=== PATIENT | female | born 1965 | race Caucasian/White ===

== ENCOUNTER 2021-10-09 09:32 | Inpatient (IN) ==
[2021-10-09 09:59] LABS: ABG BASE EXCESS 0.5 mmol/L (-2.0-2.0); ABG HCO3 20.1 mmol/L (22-26)
[2021-10-09 10:00] LABS: ABG ALLEN TEST POS
--- NOTE | 2021-10-09 10:10 | DR.SOBA ---
HPI Time Seen Time Seen by Provider: 10/09/21 10:10 Primary Care Physician Primary Care Physician: BRITTANEY Complaints Chief Complaint:: TESTED POSITIVE FOR COVID LAST SATURDAY O2 AT HOME 80% AT HOME. CALLED DR. QUISPE [facility] THIS MORNING AND HE SENT PT TO ER. PT C/O SHORTNESS OF BREATH, WEAKNESS AND NAUSEATED. PT STATES SHE HAS A SORE THROAT, RIGHT EAR PAIN Self Treatment fo Chief Complaint: HAS BEEN TAKING TYLENOL AND VITAMINS AT HOME. RCV THE OUTPT INFUSION FOR COVID ON 10/03/21, SX HAVEN'T GOTTEN BETTER COVID-19 Coronavirus risk:travel/contact w/high risk person: Yes Has patient experienced Coronavirus symptoms: Yes Coronavirus symptoms experienced: Coughing and Shortness of Breath Source History Provided: Patient and Significant Other Mode of Arrival Mode of Arrival: Wheelchair Timing Onset of Chief Complaint: 10/02/21 PMH PMH Past Medical History: Yes Past Medical History: Diabetes, Dyslipidemia and Hypertension Past Medical History Comment: HX SARCOIDOSIS Past Surgical History: Yes Surgical History: Cholecystectomy and Hysterectomy Family History History of Family Medical Conditions: Yes Family Medical History: Diabetes Mellitus, Coronary Artery Disease and Hypertension Social History Does patient currently use any type of tobacco product: No Have you used tobacco products in the last 12 months: No Type of Tobacco Use: None Alcohol Use: None Do you use any recreational Drugs:: No Lives With: Spouse Lives Where: Home Travel Risk Coronavirus risk:travel/contact w/high risk person: Yes Has patient experienced Coronavirus symptoms: Yes Coronavirus symptoms experienced: Coughing and Shortness of Breath Infectious screening In the last 2 months have you had wt loss of >10#?: NO Have you had fever, night sweats or hemotysis?: No Have you traveled outside the country in the last 6 months?: No Isolation: Droplet ROS Review of Systems Constitutional: No Symptoms Reported and See HPI Eyes: No Symptoms Reported and See HPI ENTM: No Symptoms Reported and See HPI Respiratoy: No Symptoms Reported and See HPI Cardiovascular: No Symptoms Reported and See HPI Gastrointestinal/Abdominal: No Symptoms Reported and See HPI Genitourinary: No Symptoms Reported and See HPI Neurological: No Symptoms Reported and See HPI Musculoskeletal: No Symptoms Reported and See HPI Integumentary: No Symptoms Reported and See HPI Hematologic/Lymphatic: No Symptoms Reported and See HPI Endocrine: No Symptoms Reported and See HPI Psychiatric: No Symptoms Reported and See HPI All Other Systems: Reviewed and Negative PE Vital Signs Vitals: Temperature 98.3 F Pulse Rate [Left Radial] 68 Pulse Rate 67 Respiratory Rate 18 Blood Pressure [Right Arm] 117/78 Blood Pressure 125/80 O2 Sat by Pulse Oximetry 91 General Limitations: No Limitations General Appearance: Alert and In No Apparent Distress Head Head Exam: Normal Inspection Eyes Eye exam: Normal Appearance ENT ENT Exam: Normal Exam Neck Neck Exam: Normal Inspection Chest Chest Inspection: Normal Inspection Respiratory Respiratory Exam: Normal Lung Sounds Bilat Respiratory Exam: Bilateral: Clear to Auscultation Cardiovascular Cardiovascular Exam: Regular Rate and Normal Rhythm Abdominal Exam Abdominal Exam: Normal Inspection, Normal Bowel Sounds and Soft Extremities Extremities Exam: Normal Inspection Back Back Exam: Normal Inspection Neurologic Neurological Exam: Alert and Oriented X3 Psychiatric Psychiatric Exam: Normal Affect and Normal Mood Skin Skin Exam: Warm, Dry, Intact and Normal Color ROR Labs Reviewed Result Diagrams: 10/15/21 07:00 10/15/21 07:00 Laboratory: WBC 6.5 X10^3/uL (3.6-10.0) 10/09/21 09:53 RBC 4.77 X10^6/uL (3.5-5.4) 10/09/21 09:53 Hgb 14.8 g/dL (12.0-16.0) 10/09/21 09:53 Hct 43.4 % (36.0-47.0) 10/09/21 09:53 MCV 90.9 fL (80.0-100.0) 10/09/21 09:53 MCH 31.0 pg (27.0-34.0) 10/09/21 09:53 MCHC 34.1 g/dL (33.0-35.0) 10/09/21 09:53 RDW 13.9 % (11.6-16.5) 10/09/21 09:53 Plt Count 164 X10^3/uL (150.0-450.0) 10/09/21 09:53 MPV 9.5 fL (7.4-11.0) 10/09/21 09:53 Neut % (Auto) 60.8 % (42.0-75.0) 10/09/21 09:53 Lymph % (Auto) 29.8 % (21.0-51.0) 10/09/21 09:53 Morton % (Auto) 9.1 % (0.0-13.0) 10/09/21 09:53 Eos % (Auto) 0.1 % (0.9-2.9) L 10/09/21 09:53 Baso % (Auto) 0.2 % (0.2-1.0) 10/09/21 09:53 Neut # (Auto) 4.0 x10^3/uL (2.2-4.8) 10/09/21 09:53 Lymph # (Auto) 1.9 X10^3/uL (1.3-2.9) 10/09/21 09:53 Morton # (Auto) 0.6 x10^3/uL (0.3-0.8) 10/09/21 09:53 Eos # (Auto) 0.0 x10^3/uL (0.0-0.2) 10/09/21 09:53 Baso # (Auto) 0.0 X10^3/uL (0.0-0.1) 10/09/21 09:53 Absolute Nucleated RBC 0.2 /100WBC 10/09/21 09:53 D-Dimer < 0.27 ug/ml (0.0-0.57) 10/09/21 09:53 Sample Site Lr 10/09/21 09:57 ABG pH 7.610 (7.35-7.45) H* 10/09/21 09:57 ABG pCO2 20.0 mmHg (35.0-45.0) L 10/09/21 09:57 ABG pO2 130.0 mmHg (80.0-100.0) H 10/09/21 09:57 ABG HCO3 20.1 mmol/L (22-26) L 10/09/21 09:57 ABG O2 Saturation 99.0 % (90-100) 10/09/21 09:57 ABG Base Excess 0.5 mmol/L (-2.0-2.0) 10/09/21 09:57 Usama Test Pos 10/09/21 09:57 A-a Gradient -5.0 mmHg 10/09/21 09:57 FiO2 21.0 10/09/21 09:57 Blood Gas Comments Pt christopher well. sd 10/09/21 09:57 Sodium 132 mmol/L (136-145) L 10/09/21 09:53 Corrected Sodium 132 mmol/L (136-145) L 10/09/21 09:53 Potassium 3.3 mmol/L (3.5-5.1) L 10/09/21 09:53 Chloride 97 mmol/L (98-107) L 10/09/21 09:53 Carbon Dioxide 27.7 mmol/L (21-32) 10/09/21 09:53 BUN 12 mg/dL (7-18) 10/09/21 09:53 Creatinine 1.08 mg/dL (0.55-1.02) H 10/09/21 09:53 Est GFR (MDRD) Af Amer > 60 (>60) 10/09/21 09:53 Est GFR (MDRD) Non-Af 56 (>60) L 10/09/21 09:53 Glucose 115 mg/dL (65-99) H 10/09/21 09:53 Calcium 8.6 mg/dL (8.5-10.1) 10/09/21 09:53 Corrected Calcium 9.4 mg/dL (8.5-10.1) 10/09/21 09:53 Magnesium 1.4 mg/dL (1.7-2.9) L 10/09/21 09:53 Ferritin 290 ng/mL (8-252) H 10/09/21 09:53 Total Bilirubin 0.40 mg/dL (0.2-1.0) 10/09/21 09:53 AST 49 Units/L (15-37) H 10/09/21 09:53 ALT 37 Units/L (12-78) 10/09/21 09:53 Alkaline Phosphatase 67 Units/L (46-116) 10/09/21 09:53 C-Reactive Protein 31.80 mg/L (0-3.0) H 10/09/21 09:53 B-Natriuretic Peptide 7.3 pg/mL (0-79) 10/09/21 09:53 Total Protein 7.2 g/dL (6.4-8.2) 10/09/21 09:53 Albumin 3.0 g/dL (3.4-5.0) L 10/09/21 09:53 Globulin 4.2 g/dL (2.5-4.5) 10/09/21 09:53 Albumin/Globulin Ratio 0.7 Ratio (1.1-2.1) L 10/09/21 09:53 Specimen Type Clean catch urine 10/09/21 11:29 Urine Color Yellow (YELLOW) 10/09/21 11:29 Urine Appearance Slightly hazy (CLEAR) 10/09/21 11:29 Urine pH 6.0 (5.0 - 8.0) 10/09/21 11:29 Ur Specific [place] 1.015 (1.000-1.030) 10/09/21 11:29 Urine Protein 2+ (NEGATIVE) 10/09/21 11:29 Urine Glucose (UA) Negative (NEGATIVE) 10/09/21 11:29 Urine Ketones Negative (NEGATIVE) 10/09/21 11:29 Urine Occult Blood 1+ (NEGATIVE) 10/09/21 11:29 Urine Nitrite Negative (NEGATIVE) 10/09/21 11:29 Urine Bilirubin Negative (NEGATIVE) 10/09/21 11:29 Urine Urobilinogen 1+ (NORMAL) 10/09/21 11:29 Ur Leukocyte Esterase 1+ (NEGATIVE) 10/09/21 11:29 Urine RBC 0-2 /HPF (0-3) 10/09/21 11:29 Urine WBC 0-2 /HPF (0-5) 10/09/21 11:29 Ur Squamous Epith Cells Many /HPF (NEGATIVE) 10/09/21 11:29 Urine Bacteria Trace /HPF (NEGATIVE) 10/09/21 11:29 Urine Yeast Few /HPF (NEGATIVE) 10/09/21 11:29 Ur Culture Indicated? No/not indicated 10/09/21 11:29 SARS-CoV-2 (PCR) Positive (NEGATIVE) A 10/09/21 13:32 Influenza Type A (PCR) Negative (NEGATIVE) 10/09/21 13:32 Influenza Type B (PCR) Negative (NEGATIVE) 10/09/21 13:32 RSV (PCR) Negative (NEGATIVE) 10/09/21 13:32 Opioid Opioid Risk Tool Age (Benjie box if 16-45): No History of Preadolescent Sexual Abuse: No Total: 0 Total Score Risk Category: Low Risk Copyright: Lino VILLALOBOS predicting aberrant behaviors Instructions Forms: Excuse From Work or School Precautions for COVID19 [facility] Patient Portal Social Distancing
[2021-10-09 10:19] LABS: BASOPHILS % (AUTO) 0.2 % (0.2-1.0); EOSINOPHILS % (AUTO) 0.1 % (0.9-2.9); HEMATOCRIT 43.4 % (36.0-47.0); HEMOGLOBIN 14.8 g/dL (12.0-16.0); LYMPHOCYTES # (AUTO) 1.9 X10^3/uL (1.3-2.9); LYMPHOCYTES % (AUTO) 29.8 % (21.0-51.0); MEAN CORPUSCULAR HGB CONC 34.1 g/dL (33.0-35.0); MEAN CORPUSCULAR VOLUME 90.9 fL (80.0-100.0); MEAN PLATELET VOLUME 9.5 fL (7.4-11.0); MONOCYTES # (AUTO) 0.6 x10^3/uL (0.3-0.8); MONOCYTES % (AUTO) 9.1 % (0.0-13.0); NEUTROPHILS % (AUTO) 60.8 % (42.0-75.0); PLATELET COUNT 164 X10^3/uL (150.0-450.0); RED BLOOD COUNT 4.77 X10^6/uL (3.5-5.4); RED CELL DISTRIBUTION WIDTH 13.9 % (11.6-16.5); WHITE BLOOD COUNT 6.5 X10^3/uL (3.6-10.0)
[2021-10-09] MEDS ORDERED: NS 1,000 ML IV 1,000 ML ONE (10:21)
[2021-10-09] MEDS: NS 1,000 ML IV 1,000 ML IV SCH ×2 (10:27→19:08)
[2021-10-09 10:33] LABS: ALANINE AMINOTRANSFERASE 37 Units/L (12-78); ALKALINE PHOSPHATASE 67 Units/L (46-116); ASPARTATE AMINO TRANSFERASE 49 Units/L (15-37); BLOOD UREA NITROGEN 12 mg/dL (7-18); CALCIUM 8.6 mg/dL (8.5-10.1); CARBON DIOXIDE 27.7 mmol/L (21-32); CHLORIDE 97 mmol/L (98-107); COR CA(FOR HYPOALB) 9.4 mg/dL (8.5-10.1); COR NA(FOR HYPERGLY) 132 mmol/L (136-145); CREATININE 1.08 mg/dL (0.55-1.02); SODIUM 132 mmol/L (136-145); TOTAL PROTEIN 7.2 g/dL (6.4-8.2); eGFR NON BLACK RACES 56 (>60)
[2021-10-09 11:36] LABS: BILIRUBIN,URINE NEGATIVE (NEGATIVE); BLOOD/HEMOGLOBIN,URINE 1+ (NEGATIVE); GLUCOSE, URINE NEGATIVE (NEGATIVE); KETONES,URINE NEGATIVE (NEGATIVE); LEUKOCYTE ESTERASE ,URINE 1+ (NEGATIVE); NITRITES,URINE NEGATIVE (NEGATIVE); PROTEIN,URINE 2+ (NEGATIVE); UROBILINOGEN,URINE 1+ (NORMAL)
--- NOTE | 2021-10-09 11:45 | RAD ---
HISTORYCOVID +, C/O SOB, FEVER Relevant Clinical InformationSTUDYCHEST, 1 VIEWCOMPARISONCXR 10/03/21FINDINGSThe trachea is midline. The cardiac silhouette is enlarged, which may be secondary to low lung volumes. No overt signs of failure. Patchy bilateral airspace disease. No obvious pleural effusion or pneumothorax. The bony thorax is unremarkable.IMPRESSIONPatchy bilateral airspace disease, which may represent multifocal bacterial versus viral pneumonia. Recommend following to resolution.Electronically signed by: JOYCE SCHMIDT (Oct 09, 2021 11:43:37)
[2021-10-09 11:53] LABS: APPEARANCE,URINE SLIGHTLY HAZY (CLEAR); COLOR,URINE YELLOW (YELLOW)
[2021-10-09 11:55] LABS: RBC,URINE 0-2 /HPF (0-3)
[2021-10-09 11:56] LABS: BACTERIA,URINE TRACE /HPF (NEGATIVE); SQUAMOUS EPITHELIAL CELL,UR MANY /HPF (NEGATIVE)
[2021-10-09 11:57] LABS: YEAST,URINE FEW /HPF (NEGATIVE)
[2021-10-09] MEDS ORDERED: NS 1,000 ML IV 1,000 ML with POTASSIUM CHLORIDE INJ 10 MEQ VIAL 10 MEQ IV SCH ×2 (13:00)
[2021-10-09] MEDS ORDERED: NS 1,000 ML IV 1,000 ML with POTASSIUM CHLORIDE INJ 10 MEQ VIAL 10 MEQ IV ONE ×2 (16:00)
[2021-10-09] MEDS ORDERED: REMDESIVIR 200 MG in NS 250 ML IV 250 ML IV ONE (16:57)
[2021-10-09] MEDS ORDERED: KLOR-CON PO PRN (17:02)
[2021-10-09] MEDS ORDERED: POTASSIUM CHL 60 MEQ/NS 0.45% 500 ML IV PRN (17:02)
[2021-10-09] MEDS ORDERED: POTASSIUM CHL 40 MEQ/NS 0.45% 500 ML IV PRN (17:02)
[2021-10-09] MEDS ORDERED: POTASSIUM CHLORIDE LIQ 20 MEQ UDC PO PRN ×3 (17:02→17:34)
[2021-10-09] MEDS: ASCORBIC ACID INJ MULTI-DOSE VIAL 1,500 MG in NS 100 ML IV 100 ML IV SCH ×2 (17:33→20:08)
[2021-10-09] MEDS: MAGNESIUM SULFATE 1 GRAM/100 mL PREMIX 1 G/100 ML BAG IV PRN ×3 (18:55→21:10)
[2021-10-09] MEDS: LOVENOX INJ 30 MG SYR SC SCH (20:08)
[2021-10-09] MEDS: VIBRAMYCIN PO SCH (20:08)
[2021-10-09] MEDS: PEPCID TAB 40 MG PO SCH (20:08)
[2021-10-09] MEDS: FLUVOXAMINE MALEATE PO SCH (20:08)
[2021-10-09] MEDS: ZINC SULFATE PO SCH (20:08)
[2021-10-09] MEDS ORDERED: BROVANA IN SCH (21:00)
[2021-10-09] MEDS ORDERED: PULMICORT NEB TX 0.5 MG NEB SCH (21:00)
[2021-10-09] MEDS: PULMICORT NEB TX 0.5 MG NEB SCH (21:05)
[2021-10-09] MEDS: DUONEB 0.5 MG/3 MG (3 mL) NEB SCH (21:05)
[2021-10-09] MEDS: IVERMECTIN PO SCH (21:09)
[2021-10-09] MEDS: SOLU-Medrol 40 MG VIAL IVP SCH (21:09)
[2021-10-09] MEDS: PERIACTIN TAB 4 MG PO SCH (21:09)
[2021-10-09] MEDS: ZOSYN VIAL 3.375 GRAMS 3.375 G in NS 100 ML IV + SPIKE MINIBAG* 100 ML IV SCH (21:10)
[2021-10-10] MEDS: MAGNESIUM SULFATE 1 GRAM/100 mL PREMIX 1 G/100 ML BAG IV PRN (00:20)
[2021-10-10] MEDS: ASCORBIC ACID INJ MULTI-DOSE VIAL 1,500 MG in NS 100 ML IV 100 ML IV SCH ×4 (02:48→21:27)
[2021-10-10] MEDS: NS 1,000 ML IV 1,000 ML IV SCH ×2 (02:49→11:41)
[2021-10-10] MEDS ORDERED: NS 100 ML IV + SPIKE MINIBAG* 0 ML IV ONE (03:51)
[2021-10-10] MEDS ORDERED: NS 100 ML IV + SPIKE MINIBAG* 100 ML IV ONE (03:54)
[2021-10-10] MEDS: PERIACTIN TAB 4 MG PO SCH ×3 (05:07→21:29)
[2021-10-10] MEDS: SOLU-Medrol 40 MG VIAL IVP SCH ×3 (05:07→21:29)
[2021-10-10] MEDS: ZOSYN VIAL 3.375 GRAMS 3.375 G in NS 100 ML IV + SPIKE MINIBAG* 100 ML IV SCH ×3 (05:07→22:00)
[2021-10-10 05:18] LABS: ABG BASE EXCESS -0.4 mmol/L (-2.0-2.0); ABG HCO3 24.1 mmol/L (22-26)
[2021-10-10 05:19] LABS: ABG ALLEN TEST POS
--- NOTE | 2021-10-10 05:35 | RAD ---
PROCEDURE: Chest X-ray 1 View .HISTORY: COVID PNEUMONIA .TECHNIQUE: AP view .COMPARISON: 10/09/2021.TECHNICAL QUALITY: Satisfactory .FINDINGS:Normal size heart .Mediastinum and hilar regions show no masses or lymphadenopathy .Normal central vascularity .Unchanged patchy pneumonia throughout both lung bautista with no pleural fluid or pneumothorax.No acute bony abnormality .IMPRESSION:Unchanged bilateral pneumonia.Electronically signed by: Ki Bermeo (Oct 10, 2021 05:33:33)
[2021-10-10] MEDS: NovoLIN R (or HumuLIN R) SUBCUT PRN ×4 (05:49→21:36)
[2021-10-10 05:56] LABS: BASOPHILS % (AUTO) 0.3 % (0.2-1.0); HEMOGLOBIN 13.5 g/dL (12.0-16.0); LYMPHOCYTES # (AUTO) 0.8 X10^3/uL (1.3-2.9); LYMPHOCYTES % (AUTO) 20.5 % (21.0-51.0); MEAN CORPUSCULAR HEMOGLOBIN 30.9 pg (27.0-34.0); MEAN CORPUSCULAR HGB CONC 33.7 g/dL (33.0-35.0); MEAN CORPUSCULAR VOLUME 91.8 fL (80.0-100.0); MEAN PLATELET VOLUME 9.4 fL (7.4-11.0); MONOCYTES # (AUTO) 0.1 x10^3/uL (0.3-0.8); NEUTROPHILS # (AUTO) 3.2 x10^3/uL (2.2-4.8); NEUTROPHILS % (AUTO) 76.2 % (42.0-75.0); PLATELET COUNT 149 X10^3/uL (150.0-450.0); RED BLOOD COUNT 4.35 X10^6/uL (3.5-5.4); RED CELL DISTRIBUTION WIDTH 13.7 % (11.6-16.5); WHITE BLOOD COUNT 4.1 X10^3/uL (3.6-10.0)
[2021-10-10 06:13] LABS: ALANINE AMINOTRANSFERASE 38 Units/L (12-78); ALBUMIN 2.7 g/dL (3.4-5.0); ALKALINE PHOSPHATASE 66 Units/L (46-116); ASPARTATE AMINO TRANSFERASE 55 Units/L (15-37); BLOOD UREA NITROGEN 10 mg/dL (7-18); CALCIUM 8.1 mg/dL (8.5-10.1); CARBON DIOXIDE 22.2 mmol/L (21-32); CHLORIDE 98 mmol/L (98-107); COR CA(FOR HYPOALB) 9.1 mg/dL (8.5-10.1); COR NA(FOR HYPERGLY) 137 mmol/L (136-145); CREATININE 1.02 mg/dL (0.55-1.02); MAGNESIUM 2.5 mg/dL (1.7-2.9); SODIUM 132 mmol/L (136-145); TOTAL PROTEIN 6.8 g/dL (6.4-8.2); eGFR NON BLACK RACES 60 (>60)
[2021-10-10] MEDS: FLUVOXAMINE MALEATE PO SCH ×2 (08:50→21:27)
[2021-10-10] MEDS: LOVENOX INJ 30 MG SYR SC SCH (08:50)
[2021-10-10] MEDS: PEPCID TAB 40 MG PO SCH ×2 (08:51→21:28)
[2021-10-10] MEDS: TRICOR TAB 160 MG PO SCH (08:51)
[2021-10-10] MEDS: VIBRAMYCIN PO SCH ×2 (08:52→21:28)
[2021-10-10] MEDS: ZINC SULFATE PO SCH ×2 (08:53→21:28)
[2021-10-10] MEDS ORDERED: VITAMIN A PO SCH (09:00)
[2021-10-10] MEDS ORDERED: REMDESIVIR 100 MG in NS 250 ML IV 250 ML IV SCH (09:00)
[2021-10-10] MEDS ORDERED: VITAMIN D (1.25MG) PO SCH (09:00)
[2021-10-10] MEDS: DUONEB 0.5 MG/3 MG (3 mL) NEB SCH (09:20)
[2021-10-10] MEDS: PULMICORT NEB TX 0.5 MG NEB SCH ×2 (09:20→20:35)
[2021-10-10] MEDS ORDERED: REMDESIVIR 100 MG in NS 100 ML IV + SPIKE MINIBAG* 120 ML IV ONE (09:36)
[2021-10-10] MEDS: K-RIDER 10 MEQ/NS 100 ML 10 MEQ/100 ML BAG IV PRN ×2 (10:10→11:52)
[2021-10-10] MEDS ORDERED: REMDESIVIR IV ONE (10:15)
--- NOTE | 2021-10-10 13:25 | DR.H&P ---
H&P - History & Physical for Day of: H&P Date: 10/09/21 - Chief Complaint Chief Complaint: COVID-19, SHORTNESS OF BREATH, COUGH, NAUSEA, WEAKNESS, LOW OXYGEN SATURATIONS - History of Present Illness History of Present Illness: IS A 56 YEAR OLD PATIENT OF OURS. SHE PRESENTED TO THE ER WITH REPORTS OF INCREASING SHORTNESS OF BREATH, WEAKNESS, NAUSEA, AND LOW OXYGEN SATURATIONS. SHE ALSO ADMITS TO A SORE THROAT AND RIGHT EAR PAIN. PATIENT REPORTS THAT HER OXYGEN SATURATIONS AT HOME WERE IN THE LOWER 80s. SHE ADMITS TO TESTING POSITIVE FOR COVID-19 ON 10/02/21. SHE HAD THE [facility]- COV INFUSION ON 10/03. SHE HAS ALSO BEEN TAKING TYLENOL AND VITAMINS AT HOME WITHOUT IMPROVEMENT IN SYMPTOMS. HER PMH INCLUDES: DIABETES, DYSLIPIDEMIA, HTN, SARCOIDOSIS, CHOLECYSTECTOMY, AND HYSTERECTOMY. AUSCULTATION OF LUNG JORDAN REVEALED RHONCHI THROUGHOUT. ON ARRIVAL, HER VITALS WERE 98.3-61-24-81%RA-133/74. LABS WERE OBTAINED. ABNORMAL LAB VALUES INCLUDED THE FOLLOWING: SODIUM 132, POTASSIUM 3.3, CHLORIDE 97, CREATINE 1.08, GLUCOSE 115, FERRITIN 290, AST 49, CRP 31.80, ALBUMIN 3.0. A URINALYSIS WAS UNREMARKABLE. COVID-19 POSITIVE. RSV AND INFLUENZA WERE NEGATIVE. A CHEST XRAY WAS OBTAINED AND REVEALED: Patchy bilateral airspace disease, which may represent multifocal bacterial versus viral pneumonia. EKG REVEALED: SINUS RHYTHM WITH HR 73. IN THE ER, SHE WAS GIVEN A NORMAL SALINE BOLUS, REMDESIVIR 200MG IV X 1, DUONEB X 1. SHE WAS ADMITTED TO THE HOSPITAL FOR FURTHER EVALUATION AND TREATMENT OF PNEUMONIA DUE TO COVID-19, HYPOXIA, RESPIRATORY DISTRESS, AND WEAKNESS. SHE WAS STARTED ON NORMAL SALINE AT 125 ML/HR, IV REMDESIVIR, SOLU-MEDROL 80MG IV Q8H, ZOSYN 3.375G IV TID, VIBRAMYCIN 100MG PO BID, ASCORBIC ACID 1500MG IV Q6H, LOVENOX 30MG SC BID, PULMICORT NEBS, XOPENEX NEBS, PERIACTIN 8MG PO TID, BITAMIN D, PEPCID 40MG PO BID, TRICOR 160MG PO DAILY, FLUVOXAMINE 50MG PO BID, IVERMECTIN 21MG PO Q72H, ZINC SULFATE 220MG PO BID, AND THE POTASSIUM AND MAGNESIUM PROTOCOLS. OTHERWISE, WE PLAN TO FOLLOW UP WITH AM LABS AND CHEST XRAY AND CONTINUE TO MONITOR. TIME SPENT ON CLINICAL ASSESSMENT, REVIEWING LABS AND IMAGING, DECISION MAKING, AND DOCUMENTATION WAS GREATER THAN 75 MINUTES. - Past Medical History Past Medical History: Hypertension, Dyslipidemia, Diabetes - Past Surgical History Surgical History: Cholecystectomy, Hysterectomy - Family History Family Medical History: Diabetes Mellitus, Coronary Artery Disease, Hypertension - Social History Does patient currently use any type of tobacco product: No Have you used tobacco products in the last 12 months: No Type of Tobacco Use: None Alcohol Use: None - Medications Home Medications: flecainide Allergy (Verified 06/16/18 20:22) CONTINUE taking the following medications apixaban [Eliquis] 5 mg PO BID 10/09/21 [History] isosorbide mononitrate 30 mg PO BID 10/09/21 [History] - Review of Systems Constitutional: Weakness Eyes: No Symptoms Reported ENT: No Symptoms Reported Respiratory: Cough, Shortness of Breath, SOB with Excertion Cardiovascular: No Symptoms Reported Gastrointestinal: Nausea Genitourinary: No Symptoms Reported Musculoskeletal: No Symptoms Reported Skin: No Symptoms Reported Neurological: Weakness - Physical Exam Vital Signs: Temperature 98.8 F Pulse Rate [Left Radial] 72 Pulse Rate 74 Respiratory Rate 22 Blood Pressure [Right Arm] 129/72 Blood Pressure 103/63 O2 Sat by Pulse Oximetry 93 Oriented: Normal Eyes: Normal Ear: Normal Nose: Normal Throat: Normal Respiratory: Rhonchi Throughout Cardiovascular: Normal : Normal Auscultation: Bowel Sounds: Normal Palpation: Normal Tenderness: Normal Skin: Normal Musculoskeletal: Normal Psychiatric: Normal Mood Description: Calm Affect: Normal Speech Pattern: Clear - Assessment/Plan (1) Pneumonia due to COVID-19 virus Status: Acute Plan: ADMIT, SUPPLEMENTAL OXYGEN, IV ANTIBIOTICS, IV STEROIDS, NEBULIZER TREATMENTS, IMMUNE SUPPLEMENTS (2) Hypoxia Status: Acute (3) Respiratory distress Status: Acute (4) Generalized weakness Status: Acute - Allergies Allergies/Adverse Reactions: Allergies Allergy/AdvReac Type Severity Reaction Status Date / Time flecainide Allergy Verified 06/16/18 20:22
[2021-10-10] MEDS: ASPIRIN PO SCH (17:19)
[2021-10-10] MEDS: XOPENEX 1.25 MG/3 ML NEBULE NEB SCH (20:35)
[2021-10-10] MEDS: ELIQUIS PO SCH (21:27)
[2021-10-10] MEDS: IMDUR PO SCH (21:28)
[2021-10-11] MEDS: NS 1,000 ML IV 1,000 ML IV SCH ×4 (01:01→20:01)
[2021-10-11] MEDS: ASCORBIC ACID INJ MULTI-DOSE VIAL 1,500 MG in NS 100 ML IV 100 ML IV SCH ×4 (04:10→20:01)
[2021-10-11 05:28] LABS: BASOPHILS % (AUTO) 0.1 % (0.2-1.0); HEMATOCRIT 32.6 % (36.0-47.0); HEMOGLOBIN 11.2 g/dL (12.0-16.0); LYMPHOCYTES # (AUTO) 1.3 X10^3/uL (1.3-2.9); LYMPHOCYTES % (AUTO) 12.9 % (21.0-51.0); MEAN CORPUSCULAR HEMOGLOBIN 31.3 pg (27.0-34.0); MEAN CORPUSCULAR HGB CONC 34.3 g/dL (33.0-35.0); MEAN CORPUSCULAR VOLUME 91.3 fL (80.0-100.0); MEAN PLATELET VOLUME 9.3 fL (7.4-11.0); MONOCYTES # (AUTO) 0.5 x10^3/uL (0.3-0.8); MONOCYTES % (AUTO) 5.5 % (0.0-13.0); NEUTROPHILS # (AUTO) 8.1 x10^3/uL (2.2-4.8); NEUTROPHILS % (AUTO) 81.5 % (42.0-75.0); PLATELET COUNT 155 X10^3/uL (150.0-450.0); RED BLOOD COUNT 3.57 X10^6/uL (3.5-5.4); RED CELL DISTRIBUTION WIDTH 13.3 % (11.6-16.5); WHITE BLOOD COUNT 9.9 X10^3/uL (3.6-10.0)
[2021-10-11 05:49] LABS: ALANINE AMINOTRANSFERASE 30 Units/L (12-78); ALBUMIN 2.2 g/dL (3.4-5.0); ALKALINE PHOSPHATASE 59 Units/L (46-116); ASPARTATE AMINO TRANSFERASE 43 Units/L (15-37); BLOOD UREA NITROGEN 14 mg/dL (7-18); CALCIUM 7.6 mg/dL (8.5-10.1); CARBON DIOXIDE 24.7 mmol/L (21-32); CHLORIDE 108 mmol/L (98-107); COR NA(FOR HYPERGLY) 143 mmol/L (136-145); CREATININE 0.91 mg/dL (0.55-1.02); SODIUM 141 mmol/L (136-145); TOTAL PROTEIN 5.6 g/dL (6.4-8.2); eGFR NON BLACK RACES > 60 (>60)
[2021-10-11] MEDS: ZOSYN VIAL 3.375 GRAMS 3.375 G in NS 100 ML IV + SPIKE MINIBAG* 100 ML IV SCH ×3 (06:09→21:00)
[2021-10-11] MEDS: PERIACTIN TAB 4 MG PO SCH ×3 (06:09→21:01)
[2021-10-11] MEDS: SOLU-Medrol 40 MG VIAL IVP SCH ×3 (06:10→21:01)
[2021-10-11] MEDS: PULMICORT NEB TX 0.5 MG NEB SCH ×2 (08:50→20:56)
[2021-10-11] MEDS: XOPENEX 1.25 MG/3 ML NEBULE NEB SCH ×2 (08:50→20:56)
[2021-10-11] MEDS ORDERED: VITAMIN A PO SCH (09:00)
[2021-10-11] MEDS ORDERED: REMDESIVIR 200 MG in NS 250 ML IV 250 ML IV NR (09:00)
[2021-10-11] MEDS: ELIQUIS PO SCH ×3 (09:15→22:00)
[2021-10-11] MEDS: VIBRAMYCIN PO SCH ×2 (09:15→20:02)
[2021-10-11] MEDS: CALAN SR 180 MG PO SCH (09:15)
[2021-10-11] MEDS: ZINC SULFATE PO SCH ×2 (09:15→20:03)
[2021-10-11] MEDS: FOLIC ACID TAB 1 MG PO SCH (09:15)
[2021-10-11] MEDS: MOBIC TAB 15 MG PO SCH (09:15)
[2021-10-11] MEDS: ASPIRIN PO SCH (09:15)
[2021-10-11] MEDS: FLUVOXAMINE MALEATE PO SCH ×2 (09:15→20:03)
[2021-10-11] MEDS: TRICOR TAB 160 MG PO SCH (09:15)
[2021-10-11] MEDS: VITAMIN D3 125 mcg (5,000 UNITS) PO SCH (09:15)
[2021-10-11] MEDS: IMDUR PO SCH ×2 (09:15→20:03)
[2021-10-11] MEDS: PEPCID TAB 40 MG PO SCH ×2 (09:15→20:02)
[2021-10-11 10:42] LABS: ABG BASE EXCESS 1.3 mmol/L (-2.0-2.0); ABG HCO3 24.9 mmol/L (22-26)
[2021-10-11 10:44] LABS: ABG ALLEN TEST POS
--- NOTE | 2021-10-11 11:59 | RAD ---
HISTORYCOVID-19 SOBSTUDYAP [id number] size is similar. Interval increase in bilateral airspace disease throughout the lungs. No dominant mass, pneumothorax or large pleural effusion is evident.IMPRESSIONInterval progression of bilateral pneumonia.Electronically signed by: MANE PENNY (Oct 11, 2021 11:58:37)
[2021-10-11] MEDS ORDERED: NS 100 ML IV + SPIKE MINIBAG* 100 ML IV ONE (14:36)
[2021-10-11] MEDS ORDERED: PROVENTIL NEB TX 0.083% 2.5MG/ 3ML ONE (15:32)
[2021-10-11] MEDS ORDERED: PROVENTIL NEB TX 0.083% 2.5MG/ 3ML NEB PRN (15:36)
--- NOTE | 2021-10-11 15:41 | CT ---
HISTORYCOVID + pneumoniaSTUDYCHEST WITH CONCOMPARISONChest radiograph 10/09/2021 and chest CTA 11/06/2020TECHNIQUEMultiple CT axial images of the chest were obtained with IV contrast. Coronal and sagittal images were reconstructed. Dose reduction techniques included Automated Exposure Control (AEC) and adjustment of mA and kV.FINDINGSProbable normal heart size.The pulmonary artery and aorta have a normal caliber. Mediastinal lymphadenopathy is most likely reactive. These are only borderline enlarged with the largest in the sub carinal space.The thyroid has a normal size and configuration. No axillary mass or significant axillary lymphadenopathy is identified.Multifocal ground-glass opacity is present consistent with bronchopneumonia. Although nonspecific, this is a pattern frequently seen with COVID-19 pneumonia.No pleural effusion or pneumothorax.Surgical clips are present in the gallbladder fossa from a cholecystectomy. Round fluid collection in the gallbladder fossa is stable with no inflammatory changes around it. This is probably a postsurgical seroma. Calcifications in the left and right kidney are present. No hydronephrosis.Degenerative changes are present in the spine.IMPRESSION1. Findings consistent with bronchopneumonia2. Reactive mediastinal lymphadenopathy3. Nonobstructing renal calculiElectronically signed by: Arya Pimentel (Oct 11, 2021 15:39:33)
[2021-10-11] MEDS ORDERED: NS 250 ML IV 250 ML IV PRN (20:43)
[2021-10-11] MEDS: NovoLIN R (or HumuLIN R) SUBCUT PRN (20:46)
[2021-10-11] MEDS ORDERED: NS 250 ML IV 250 ML IV ONE (20:49)
[2021-10-12] MEDS: ASCORBIC ACID INJ MULTI-DOSE VIAL 1,500 MG in NS 100 ML IV 100 ML IV SCH ×2 (02:02→11:11)
[2021-10-12] MEDS ORDERED: ROBITUSSIN DM ONE (02:11)
[2021-10-12] MEDS: ROBITUSSIN DM PO PRN ×2 (02:30→20:36)
[2021-10-12] MEDS: NS 1,000 ML IV 1,000 ML IV SCH ×3 (05:09→20:36)
[2021-10-12] MEDS: SOLU-Medrol 40 MG VIAL IVP SCH ×3 (05:10→21:06)
[2021-10-12] MEDS: PERIACTIN TAB 4 MG PO SCH ×3 (05:10→21:06)
[2021-10-12] MEDS: ZOSYN VIAL 3.375 GRAMS 3.375 G in NS 100 ML IV + SPIKE MINIBAG* 100 ML IV SCH ×3 (05:10→21:07)
[2021-10-12 05:32] LABS: ABG ALLEN TEST POS; ABG BASE EXCESS 3.1 mmol/L (-2.0-2.0)
[2021-10-12 05:47] LABS: BASOPHILS % (AUTO) 0.1 % (0.2-1.0); HEMATOCRIT 34.1 % (36.0-47.0); HEMOGLOBIN 11.6 g/dL (12.0-16.0); LYMPHOCYTES # (AUTO) 1.3 X10^3/uL (1.3-2.9); LYMPHOCYTES % (AUTO) 9.1 % (21.0-51.0); MEAN CORPUSCULAR HEMOGLOBIN 31.4 pg (27.0-34.0); MEAN CORPUSCULAR VOLUME 92.3 fL (80.0-100.0); MEAN PLATELET VOLUME 9.1 fL (7.4-11.0); MONOCYTES # (AUTO) 0.6 x10^3/uL (0.3-0.8); MONOCYTES % (AUTO) 4.4 % (0.0-13.0); NEUTROPHILS # (AUTO) 12.4 x10^3/uL (2.2-4.8); NEUTROPHILS % (AUTO) 86.4 % (42.0-75.0); PLATELET COUNT 182 X10^3/uL (150.0-450.0); RED BLOOD COUNT 3.69 X10^6/uL (3.5-5.4); WHITE BLOOD COUNT 14.3 X10^3/uL (3.6-10.0)
[2021-10-12 05:50] LABS: ALANINE AMINOTRANSFERASE 31 Units/L (12-78); ALBUMIN 2.3 g/dL (3.4-5.0); ALKALINE PHOSPHATASE 73 Units/L (46-116); ASPARTATE AMINO TRANSFERASE 50 Units/L (15-37); BLOOD UREA NITROGEN 19 mg/dL (7-18); CALCIUM 7.8 mg/dL (8.5-10.1); CARBON DIOXIDE 28.5 mmol/L (21-32); CHLORIDE 107 mmol/L (98-107); COR CA(FOR HYPOALB) 9.2 mg/dL (8.5-10.1); COR NA(FOR HYPERGLY) 141 mmol/L (136-145); CREATININE 0.91 mg/dL (0.55-1.02); SODIUM 140 mmol/L (136-145); TOTAL PROTEIN 5.6 g/dL (6.4-8.2); eGFR NON BLACK RACES > 60 (>60)
--- NOTE | 2021-10-12 06:31 | RAD ---
HISTORYShortness of breath, COVID-19STUDYChest AP [id number]/05/2022FINDINGSThe heart is enlarged. No definite congestive heart failure is noted. The lungs are somewhat better inflated than on the prior examination. Diffuse bilateral ground-glass and alveolar infiltrates are unchanged considering a difference in film technique. No pleural effusion or pneumothorax is identified. Bony thorax is unremarkable.IMPRESSIONNo change diffuse bilateral ground-glass and alveolar infiltrates considering a difference in film techniqueNo change mild cardiomegaly without congestive heart failureElectronically signed by: JASON SHOOK (Oct 12, 2021 06:28:43)
[2021-10-12] MEDS: XOPENEX 1.25 MG/3 ML NEBULE NEB SCH ×2 (08:47→20:57)
[2021-10-12] MEDS: PULMICORT NEB TX 0.5 MG NEB SCH ×2 (08:47→20:57)
[2021-10-12] MEDS: VITAMIN D3 125 mcg (5,000 UNITS) PO SCH (10:00)
[2021-10-12] MEDS: ELIQUIS PO SCH ×2 (10:00→20:37)
[2021-10-12] MEDS: ZINC SULFATE PO SCH ×2 (10:00→20:37)
[2021-10-12] MEDS: MOBIC TAB 15 MG PO SCH (10:00)
[2021-10-12] MEDS: FLUVOXAMINE MALEATE PO SCH ×2 (10:00→20:37)
[2021-10-12] MEDS: FOLIC ACID TAB 1 MG PO SCH (10:00)
[2021-10-12] MEDS: VIBRAMYCIN PO SCH ×2 (10:00→20:37)
[2021-10-12] MEDS: PEPCID TAB 40 MG PO SCH ×2 (10:00→20:38)
[2021-10-12] MEDS: TRICOR TAB 160 MG PO SCH (10:00)
[2021-10-12] MEDS: IMDUR PO SCH ×2 (10:00→20:38)
[2021-10-12] MEDS: CALAN SR 180 MG PO SCH (10:00)
[2021-10-12] MEDS: ACTEMRA 400 MG in NS 100 ML IV 80 ML IV SCH (10:03)
[2021-10-12] MEDS: ASPIRIN PO SCH (10:05)
[2021-10-12] MEDS: VITAMIN C PO SCH ×3 (10:08→21:06)
[2021-10-12] MEDS: HYDROCHLOROTHIAZIDE 25 MG TAB PO SCH (10:08)
--- NOTE | 2021-10-12 11:04 | PCM.PROG ---
Progress Note - Progress Note for Day of Date of Exam: 10/11/21 - Subjective Subjective: WAS ADMITTED FOR TREATMENT OF PNEUMONIA DUE TO COVID-19, HYPOXIA, RESPIRATORY DISTRESS, AND GENERALIZED WEAKNESS. TODAY, SHE IS ALERT AND ORIENTED, SITTING UP IN THE CHAIR ON MORNING ROUNDS. SHE CONTINUES WITH COMPLAINTS OF SHORTNESS OF BREATH, WEAKNESS, AND SORE THROAT. SHE REMAINS ON OXYGEN VIA NASAL CANNULA AT 4 LPM THIS MORNING. HER SATURATIONS HAVE BEEN 88-94% THROUGHOUT THIS NIGHT AND THIS MORNING. ON EXAMINATION, HEART IS REGULAR IN RATE AND RHYTHM. BILATERAL LUNGS ARE NOTED WITH RHONCHI THROUGHOUT. ABDOMEN IS ROUND, SOFT, AND NON-TENDER WITH NORMAL BOWEL SOUNDS NOTED IN ALL QUADRANTS. HER VITALS THIS MORNING ARE: 97.7-69-18-88%-124/69. LABS WERE OBTAINED. ABNORMAL LAB VALUES INCLUDE THE FOLLOWING: HGB 11.2, HCT 32.6, CHLORIDE 108, GLUCOSE 168, CALCIUM 7.6, AST 43, CRP 16.50, TOTAL PROTEIN 5.6, ALBUMIN 2.2. A CHEST XRAY WAS OBTAINED AND REVEALED: Interval progression of bilateral pneumonia. SHE IS CURRENTLY RECEIVING NORMAL SALINE AT 125 ML/HR, IV REMDESIVIR, SOLU-MEDROL 80MG IV Q8H, ZOSYN 3.375G IV TID, VIBRAMYCIN 100MG PO BID, ASCORBIC ACID 1500MG IV Q6H, LOVENOX 30MG SC BID, PULMICORT NEBS, XOPENEX NEBS, PERIACTIN 8MG PO TID, VITAMIN D, PEPCID 40MG PO BID, TRICOR 160MG PO DAILY, FLUVOXAMINE 50MG PO BID, IVERMECTIN 21MG PO Q72H, ZINC SULFATE 220MG PO BID, AND THE POTASSIUM AND MAGNESIUM PROTOCOLS. WE WILL RESUME HER HOME MEDICATIONS. OTHERWISE, WE PLAN TO FOLLOW UP WITH AM LABS AND CHEST XRAY AND CONTINUE TO MONITOR. TIME SPENT ON CLINICAL ASSESSMENT, REVIEWING LABS AND IMAGING, DECISION MAKING, AND DOCUMENTATION GREATER THAN 45 MINUTES. - Past Medical Family Social History Past Med/Fam/Surg Hx: No changes since H&P Allergies: Allergies flecainide Allergy (Verified 06/16/18 20:22) - Review of Systems ROS: No change since H&P - Vital Signs and I&O's Vital Signs: Temperature 98.0 F Pulse Rate [Left Radial] 69 Pulse Rate 68 Respiratory Rate 20 Blood Pressure [Right Arm] 146/74 Blood Pressure 103/63 O2 Sat by Pulse Oximetry 94 Intake and Output: Intake & Output 10/09/21 10/10/21 10/11/21 10/12/21 11:59 11:59 11:59 11:59 Intake Total 2096 3755 / 3755 3750 / 3750 Output Total 0 / 0 Balance 2096 3755 / 3755 3750 / 3750 - Physical Exam Oriented: Normal Eyes: Normal Ear: Normal Nose: Normal Throat: Normal Respiratory: Diminished, Rhonchi Cardiovascular: Normal : Normal Auscultation: Bowel Sounds: Normal Tenderness: Normal Skin: Normal Musculoskeletal: Normal Psychiatric: Normal Mood Description: Calm Affect: Normal Speech Pattern: Clear, Appropriate - Laboratory and Diagnostics Result Diagrams: 10/12/21 04:53 10/12/21 04:53 Labs: Laboratory WBC 14.3 X10^3/uL (3.6-10.0) H 10/12/21 04:53 RBC 3.69 X10^6/uL (3.5-5.4) 10/12/21 04:53 Hgb 11.6 g/dL (12.0-16.0) L 10/12/21 04:53 Hct 34.1 % (36.0-47.0) L 10/12/21 04:53 MCV 92.3 fL (80.0-100.0) 10/12/21 04:53 MCH 31.4 pg (27.0-34.0) 10/12/21 04:53 MCHC 34.0 g/dL (33.0-35.0) 10/12/21 04:53 RDW 14.0 % (11.6-16.5) 10/12/21 04:53 Plt Count 182 X10^3/uL (150.0-450.0) 10/12/21 04:53 MPV 9.1 fL (7.4-11.0) 10/12/21 04:53 Neut % (Auto) 86.4 % (42.0-75.0) H 10/12/21 04:53 Lymph % (Auto) 9.1 % (21.0-51.0) L 10/12/21 04:53 [place] % (Auto) 4.4 % (0.0-13.0) 10/12/21 04:53 Eos % (Auto) 0.0 % (0.9-2.9) L 10/12/21 04:53 Baso % (Auto) 0.1 % (0.2-1.0) L 10/12/21 04:53 Neut # (Auto) 12.4 x10^3/uL (2.2-4.8) H 10/12/21 04:53 Lymph # (Auto) 1.3 X10^3/uL (1.3-2.9) 10/12/21 04:53 [place] # (Auto) 0.6 x10^3/uL (0.3-0.8) 10/12/21 04:53 Eos # (Auto) 0.0 x10^3/uL (0.0-0.2) 10/12/21 04:53 Baso # (Auto) 0.0 X10^3/uL (0.0-0.1) 10/12/21 04:53 Absolute Nucleated RBC 0.0 /100WBC 10/12/21 04:53 D-Dimer 0.41 ug/ml (0.0-0.57) 10/12/21 04:53 Sample Site Rrad 10/12/21 05:30 ABG pH 7.380 (7.35-7.45) 10/12/21 05:30 ABG pCO2 49.0 mmHg (35.0-45.0) H 10/12/21 05:30 ABG pO2 68.0 mmHg (80.0-100.0) L 10/12/21 05:30 ABG HCO3 29.0 mmol/L (22-26) H 10/12/21 05:30 ABG O2 Saturation 93.0 % (90-100) 10/12/21 05:30 ABG Base Excess 3.1 mmol/L (-2.0-2.0) H 10/12/21 05:30 Usama Test Pos 10/12/21 05:30 A-a Gradient 512.0 mmHg 10/12/21 05:30 FiO2 90.0 10/12/21 05:30 Blood Gas Comments Alecia well ms/mtf 10/12/21 05:30 Sodium 140 mmol/L (136-145) 10/12/21 04:53 Corrected Sodium 141 mmol/L (136-145) 10/12/21 04:53 Potassium 3.8 mmol/L (3.5-5.1) 10/12/21 04:53 Chloride 107 mmol/L (98-107) 10/12/21 04:53 Carbon Dioxide 28.5 mmol/L (21-32) 10/12/21 04:53 BUN 19 mg/dL (7-18) H 10/12/21 04:53 Creatinine 0.91 mg/dL (0.55-1.02) 10/12/21 04:53 Est GFR (MDRD) Af Amer > 60 (>60) 10/12/21 04:53 Est GFR (MDRD) Non-Af > 60 (>60) 10/12/21 04:53 Glucose 146 mg/dL (65-99) H 10/12/21 04:53 POC Glucose (mg/dL) 169 mg/dL (65-99) H 10/12/21 05:33 Calcium 7.8 mg/dL (8.5-10.1) L 10/12/21 04:53 Corrected Calcium 9.2 mg/dL (8.5-10.1) 10/12/21 04:53 Magnesium 2.5 mg/dL (1.7-2.9) 10/10/21 05:35 Ferritin 290 ng/mL (8-252) H 10/09/21 09:53 Total Bilirubin 0.40 mg/dL (0.2-1.0) 10/12/21 04:53 AST 50 Units/L (15-37) H 10/12/21 04:53 ALT 31 Units/L (12-78) 10/12/21 04:53 Alkaline Phosphatase 73 Units/L (46-116) 10/12/21 04:53 C-Reactive Protein 15.40 mg/L (0-3.0) H 10/12/21 04:53 B-Natriuretic Peptide 135 pg/mL (0-79) H 10/12/21 04:53 Total Protein 5.6 g/dL (6.4-8.2) L 10/12/21 04:53 Albumin 2.3 g/dL (3.4-5.0) L 10/12/21 04:53 Globulin 3.3 g/dL (2.5-4.5) 10/12/21 04:53 Albumin/Globulin Ratio 0.7 Ratio (1.1-2.1) L 10/12/21 04:53 Specimen Type Clean catch urine 10/09/21 11:29 Urine Color Yellow (YELLOW) 10/09/21 11:29 Urine Appearance Slightly hazy (CLEAR) 10/09/21 11:29 Urine pH 6.0 (5.0 - 8.0) 10/09/21 11:29 Ur Specific [place] 1.015 (1.000-1.030) 10/09/21 11:29 Urine Protein 2+ (NEGATIVE) 10/09/21 11:29 Urine Glucose (UA) Negative (NEGATIVE) 10/09/21 11:29 Urine Ketones Negative (NEGATIVE) 10/09/21 11:29 Urine Occult Blood 1+ (NEGATIVE) 10/09/21 11:29 Urine Nitrite Negative (NEGATIVE) 10/09/21 11:29 Urine Bilirubin Negative (NEGATIVE) 10/09/21 11:29 Urine Urobilinogen 1+ (NORMAL) 10/09/21 11:29 Ur Leukocyte Esterase 1+ (NEGATIVE) 10/09/21 11:29 Urine RBC 0-2 /HPF (0-3) 10/09/21 11:29 Urine WBC 0-2 /HPF (0-5) 10/09/21 11:29 Ur Squamous Epith Cells Many /HPF (NEGATIVE) 10/09/21 11:29 Urine Bacteria Trace /HPF (NEGATIVE) 10/09/21 11:29 Urine Yeast Few /HPF (NEGATIVE) 10/09/21 11:29 Ur Culture Indicated? No/not indicated 10/09/21 11:29 SARS-CoV-2 (PCR) Positive (NEGATIVE) A 10/09/21 13:32 Influenza Type A (PCR) Negative (NEGATIVE) 10/09/21 13:32 Influenza Type B (PCR) Negative (NEGATIVE) 10/09/21 13:32 RSV (PCR) Negative (NEGATIVE) 10/09/21 13:32 - Plan (1) Pneumonia due to COVID-19 virus Status: Acute Plan: SUPPLEMENTAL OXYGEN, IV ANTIBIOTICS, IV STEROIDS, NEBULIZER TREATMENTS, IMMUNE SUPPLEMENTS (2) Hypoxia Status: Acute (3) Respiratory distress Status: Acute (4) Generalized weakness Status: Acute
--- NOTE | 2021-10-12 11:16 | PCM.PROG ---
Progress Note - Progress Note for Day of Date of Exam: 10/12/21 - Subjective Subjective: WAS ADMITTED FOR TREATMENT OF PNEUMONIA DUE TO COVID-19, HYPOXIA, RESPIRATORY DISTRESS, AND GENERALIZED WEAKNESS. TODAY, SHE IS ALERT AND ORIENTED, LYING IN THE BED ON MORNING ROUNDS. SHE CONTINUES WITH COMPLAINTS OF SHORTNESS OF BREATH, WEAKNESS, AND SORE THROAT. SHE ADMITS TO COUGHING UP SMALL AMOUNTS BLOOD THIS MORNING. SHE IS NOW ON HEATED HIGH FLOW OXYGEN AT 90% FIO2. HER SATURATIONS HAVE BEEN 92-27% THROUGHOUT THIS NIGHT AND THIS MORNING. ON EXAMINATION, HEART IS REGULAR IN RATE AND RHYTHM. BILATERAL LUNGS ARE NOTED WITH RHONCHI THROUGHOUT. ABDOMEN IS ROUND, SOFT, AND NON-TENDER WITH NORMAL BOWEL SOUNDS NOTED IN ALL QUADRANTS. HER VITALS THIS MORNING ARE: 98.0-68-18-96%- 148/81. LABS WERE OBTAINED. ABNORMAL LAB VALUES INCLUDE THE FOLLOWING: WBC 14.3, HGB 11.6, HCT 34.1, BUN 19, GLUCOSE 146, CALCIUM 7.8, AST 50, CRP 15.40, BNP 135, ALBUMIN 2.3. A CHEST XRAY WAS OBTAINED AND REVEALED: No change diffuse bilateral ground-glass and alveolar infiltrates considering a difference in film technique. No change mild cardiomegaly without congestive heart failure. SHE IS CURRENTLY RECEIVING NORMAL SALINE AT 125 ML/HR, IV REMDESIVIR, SOLU-MEDROL 80MG IV Q8H, ZOSYN 3.375G IV TID, VIBRAMYCIN 100MG PO BID, ASCORBIC ACID 1500MG IV Q6H, LOVENOX 30MG SC BID, PULMICORT NEBS, XOPENEX NEBS, PERIACTIN 8MG PO TID, VITAMIN D, PEPCID 40MG PO BID, TRICOR 160MG PO DAILY, FLUVOXAMINE 50MG PO BID, IVERMECTIN 21MG PO Q72H, ZINC SULFATE 220MG PO BID, AND THE POTASSIUM AND MAGNESIUM PROTOCOLS. HER HOME MEDICATIONS WERE ALSO RESUMED. TODAY, WE WILL DECREASE HER IV FLUIDS TO 50 ML/HR, CHANGE ASCORBIC ACID TO 500MG PO Q6H, ADD HCTZ 25MG PO DAILY, AND ACTEMRA 400MG IV X 1 DOSE. WE WILL DECREASE HER OXYGEN SHE TOLERATES IT. OTHERWISE, WE PLAN TO FOLLOW UP WITH AM LABS AND CHEST XRAY AND CONTINUE TO MONITOR. TIME SPENT ON CLINICAL ASSESSMENT, REVIEWING LABS AND IMAGING, DECISION MAKING, AND DOCUMENTATION GREATER THAN 45 MINUTES. - Past Medical Family Social History Past Med/Fam/Surg Hx: No changes since H&P Allergies: Allergies flecainide Allergy (Verified 06/16/18 20:22) - Review of Systems ROS: No change since H&P - Vital Signs and I&O's Vital Signs: Temperature 98.0 F Pulse Rate [Left Radial] 72 Pulse Rate 68 Respiratory Rate 22 Blood Pressure [Right Arm] 130/75 Blood Pressure 103/63 O2 Sat by Pulse Oximetry 95 Intake and Output: Intake & Output 10/09/21 10/10/21 10/11/21 10/12/21 11:59 11:59 11:59 11:59 Intake Total 2096 3755 / 3755 3750 / 3750 Output Total 0 / 0 Balance 2096 3755 / 3755 3750 / 3750 - Physical Exam Oriented: Normal Eyes: Normal Ear: Normal Nose: Normal Throat: Normal Respiratory: Diminished, Rhonchi Cardiovascular: Normal : Normal Auscultation: Bowel Sounds: Normal Palpation: Normal Tenderness: Normal Skin: Normal Musculoskeletal: Normal Psychiatric: Normal Mood Description: Calm Affect: Normal Speech Pattern: Clear, Appropriate - Laboratory and Diagnostics Result Diagrams: 10/12/21 04:53 10/12/21 04:53 Labs: Laboratory WBC 14.3 X10^3/uL (3.6-10.0) H 10/12/21 04:53 RBC 3.69 X10^6/uL (3.5-5.4) 10/12/21 04:53 Hgb 11.6 g/dL (12.0-16.0) L 10/12/21 04:53 Hct 34.1 % (36.0-47.0) L 10/12/21 04:53 MCV 92.3 fL (80.0-100.0) 10/12/21 04:53 MCH 31.4 pg (27.0-34.0) 10/12/21 04:53 MCHC 34.0 g/dL (33.0-35.0) 10/12/21 04:53 RDW 14.0 % (11.6-16.5) 10/12/21 04:53 Plt Count 182 X10^3/uL (150.0-450.0) 10/12/21 04:53 MPV 9.1 fL (7.4-11.0) 10/12/21 04:53 Neut % (Auto) 86.4 % (42.0-75.0) H 10/12/21 04:53 Lymph % (Auto) 9.1 % (21.0-51.0) L 10/12/21 04:53 [place] % (Auto) 4.4 % (0.0-13.0) 10/12/21 04:53 Eos % (Auto) 0.0 % (0.9-2.9) L 10/12/21 04:53 Baso % (Auto) 0.1 % (0.2-1.0) L 10/12/21 04:53 Neut # (Auto) 12.4 x10^3/uL (2.2-4.8) H 10/12/21 04:53 Lymph # (Auto) 1.3 X10^3/uL (1.3-2.9) 10/12/21 04:53 [place] # (Auto) 0.6 x10^3/uL (0.3-0.8) 10/12/21 04:53 Eos # (Auto) 0.0 x10^3/uL (0.0-0.2) 10/12/21 04:53 Baso # (Auto) 0.0 X10^3/uL (0.0-0.1) 10/12/21 04:53 Absolute Nucleated RBC 0.0 /100WBC 10/12/21 04:53 D-Dimer 0.41 ug/ml (0.0-0.57) 10/12/21 04:53 Sample Site Rrad 10/12/21 05:30 ABG pH 7.380 (7.35-7.45) 10/12/21 05:30 ABG pCO2 49.0 mmHg (35.0-45.0) H 10/12/21 05:30 ABG pO2 68.0 mmHg (80.0-100.0) L 10/12/21 05:30 ABG HCO3 29.0 mmol/L (22-26) H 10/12/21 05:30 ABG O2 Saturation 93.0 % (90-100) 10/12/21 05:30 ABG Base Excess 3.1 mmol/L (-2.0-2.0) H 10/12/21 05:30 Usama Test Pos 10/12/21 05:30 A-a Gradient 512.0 mmHg 10/12/21 05:30 FiO2 90.0 10/12/21 05:30 Blood Gas Comments Alecia well ms/mtf 10/12/21 05:30 Sodium 140 mmol/L (136-145) 10/12/21 04:53 Corrected Sodium 141 mmol/L (136-145) 10/12/21 04:53 Potassium 3.8 mmol/L (3.5-5.1) 10/12/21 04:53 Chloride 107 mmol/L (98-107) 10/12/21 04:53 Carbon Dioxide 28.5 mmol/L (21-32) 10/12/21 04:53 BUN 19 mg/dL (7-18) H 10/12/21 04:53 Creatinine 0.91 mg/dL (0.55-1.02) 10/12/21 04:53 Est GFR (MDRD) Af Amer > 60 (>60) 10/12/21 04:53 Est GFR (MDRD) Non-Af > 60 (>60) 10/12/21 04:53 Glucose 146 mg/dL (65-99) H 10/12/21 04:53 POC Glucose (mg/dL) 169 mg/dL (65-99) H 10/12/21 05:33 Calcium 7.8 mg/dL (8.5-10.1) L 10/12/21 04:53 Corrected Calcium 9.2 mg/dL (8.5-10.1) 10/12/21 04:53 Magnesium 2.5 mg/dL (1.7-2.9) 10/10/21 05:35 Ferritin 290 ng/mL (8-252) H 10/09/21 09:53 Total Bilirubin 0.40 mg/dL (0.2-1.0) 10/12/21 04:53 AST 50 Units/L (15-37) H 10/12/21 04:53 ALT 31 Units/L (12-78) 10/12/21 04:53 Alkaline Phosphatase 73 Units/L (46-116) 10/12/21 04:53 C-Reactive Protein 15.40 mg/L (0-3.0) H 10/12/21 04:53 B-Natriuretic Peptide 135 pg/mL (0-79) H 10/12/21 04:53 Total Protein 5.6 g/dL (6.4-8.2) L 10/12/21 04:53 Albumin 2.3 g/dL (3.4-5.0) L 10/12/21 04:53 Globulin 3.3 g/dL (2.5-4.5) 10/12/21 04:53 Albumin/Globulin Ratio 0.7 Ratio (1.1-2.1) L 10/12/21 04:53 Specimen Type Clean catch urine 10/09/21 11:29 Urine Color Yellow (YELLOW) 10/09/21 11:29 Urine Appearance Slightly hazy (CLEAR) 10/09/21 11:29 Urine pH 6.0 (5.0 - 8.0) 10/09/21 11:29 Ur Specific [place] 1.015 (1.000-1.030) 10/09/21 11:29 Urine Protein 2+ (NEGATIVE) 10/09/21 11:29 Urine Glucose (UA) Negative (NEGATIVE) 10/09/21 11:29 Urine Ketones Negative (NEGATIVE) 10/09/21 11:29 Urine Occult Blood 1+ (NEGATIVE) 10/09/21 11:29 Urine Nitrite Negative (NEGATIVE) 10/09/21 11:29 Urine Bilirubin Negative (NEGATIVE) 10/09/21 11:29 Urine Urobilinogen 1+ (NORMAL) 10/09/21 11:29 Ur Leukocyte Esterase 1+ (NEGATIVE) 10/09/21 11:29 Urine RBC 0-2 /HPF (0-3) 10/09/21 11:29 Urine WBC 0-2 /HPF (0-5) 10/09/21 11:29 Ur Squamous Epith Cells Many /HPF (NEGATIVE) 10/09/21 11:29 Urine Bacteria Trace /HPF (NEGATIVE) 10/09/21 11:29 Urine Yeast Few /HPF (NEGATIVE) 10/09/21 11:29 Ur Culture Indicated? No/not indicated 10/09/21 11:29 SARS-CoV-2 (PCR) Positive (NEGATIVE) A 10/09/21 13:32 Influenza Type A (PCR) Negative (NEGATIVE) 10/09/21 13:32 Influenza Type B (PCR) Negative (NEGATIVE) 10/09/21 13:32 RSV (PCR) Negative (NEGATIVE) 10/09/21 13:32 - Plan (1) Pneumonia due to COVID-19 virus Status: Acute Plan: SUPPLEMENTAL OXYGEN, IV ANTIBIOTICS, IV STEROIDS, NEBULIZER TREATMENTS, IMMUNE SUPPLEMENTS (2) Hypoxia Status: Acute (3) Respiratory distress Status: Acute (4) Generalized weakness Status: Acute
[2021-10-12] MEDS: NovoLIN R (or HumuLIN R) SUBCUT PRN ×2 (12:31→17:00)
[2021-10-12] MEDS: TUSSIONEX PENNKINETIC SUSP PO PRN (14:00)
[2021-10-12] MEDS: COLACE CAP 100 MG PO PRN (20:36)
[2021-10-12] MEDS: IVERMECTIN PO SCH (21:05)
[2021-10-13] MEDS: NS 1,000 ML IV 1,000 ML IV SCH ×3 (03:31→20:23)
[2021-10-13] MEDS: VITAMIN C PO SCH ×4 (03:36→21:06)
[2021-10-13] MEDS: TUSSIONEX PENNKINETIC SUSP PO PRN ×2 (03:36→22:30)
[2021-10-13] MEDS ORDERED: NS 100 ML IV + SPIKE MINIBAG* 100 ML IV ONE (04:09)
[2021-10-13] MEDS: PERIACTIN TAB 4 MG PO SCH ×3 (05:08→21:06)
[2021-10-13] MEDS: SOLU-Medrol 40 MG VIAL IVP SCH ×3 (05:09→21:06)
[2021-10-13] MEDS: ZOSYN VIAL 3.375 GRAMS 3.375 G in NS 100 ML IV + SPIKE MINIBAG* 100 ML IV SCH ×3 (05:09→21:07)
[2021-10-13] MEDS: ELIQUIS PO SCH ×2 (05:10→10:02)
[2021-10-13 05:27] LABS: BASOPHILS % (AUTO) 0.1 % (0.2-1.0); HEMOGLOBIN 11.1 g/dL (12.0-16.0); LYMPHOCYTES # (AUTO) 1.3 X10^3/uL (1.3-2.9); LYMPHOCYTES % (AUTO) 6.7 % (21.0-51.0); MEAN CORPUSCULAR HEMOGLOBIN 30.8 pg (27.0-34.0); MEAN CORPUSCULAR HGB CONC 33.8 g/dL (33.0-35.0); MEAN CORPUSCULAR VOLUME 91.1 fL (80.0-100.0); MONOCYTES # (AUTO) 0.6 x10^3/uL (0.3-0.8); MONOCYTES % (AUTO) 3.3 % (0.0-13.0); NEUTROPHILS # (AUTO) 16.9 x10^3/uL (2.2-4.8); NEUTROPHILS % (AUTO) 89.9 % (42.0-75.0); PLATELET COUNT 201 X10^3/uL (150.0-450.0); RED BLOOD COUNT 3.62 X10^6/uL (3.5-5.4); RED CELL DISTRIBUTION WIDTH 13.8 % (11.6-16.5); WHITE BLOOD COUNT 18.8 X10^3/uL (3.6-10.0)
[2021-10-13 05:30] LABS: ALANINE AMINOTRANSFERASE 26 Units/L (12-78); ALBUMIN 2.3 g/dL (3.4-5.0); ALKALINE PHOSPHATASE 112 Units/L (46-116); ASPARTATE AMINO TRANSFERASE 59 Units/L (15-37); BLOOD UREA NITROGEN 27 mg/dL (7-18); CALCIUM 7.8 mg/dL (8.5-10.1); CARBON DIOXIDE 28.5 mmol/L (21-32); CHLORIDE 106 mmol/L (98-107); COR CA(FOR HYPOALB) 9.2 mg/dL (8.5-10.1); COR NA(FOR HYPERGLY) 140 mmol/L (136-145); CREATININE 0.96 mg/dL (0.55-1.02); SODIUM 138 mmol/L (136-145); TOTAL PROTEIN 5.3 g/dL (6.4-8.2); eGFR NON BLACK RACES > 60 (>60)
--- NOTE | 2021-10-13 05:57 | RAD ---
PROCEDURE: Chest X-ray 1 View .HISTORY: Short of breath and COVID-19.TECHNIQUE: AP view .COMPARISON: 10/12/2021.TECHNICAL QUALITY: Satisfactory .FINDINGS:Normal size heart .Mediastinum and hilar regions show no masses or lymphadenopathy .Normal central vascularity .Patchy consolidation both lung bases similar to previous study consistent with pneumonia. No pleural fluid or pneumothorax.No acute bony abnormality .IMPRESSION:Unchanged bibasilar pneumonia.Electronically signed by: Ki Bermeo (Oct 13, 2021 05:56:20)
[2021-10-13] MEDS: PULMICORT NEB TX 0.5 MG NEB SCH ×2 (08:40→20:10)
[2021-10-13] MEDS: XOPENEX 1.25 MG/3 ML NEBULE NEB SCH ×2 (08:40→20:10)
[2021-10-13] MEDS: VIBRAMYCIN PO SCH ×2 (10:00→20:24)
[2021-10-13] MEDS: MOBIC TAB 15 MG PO SCH (10:00)
[2021-10-13] MEDS: CALAN SR 180 MG PO SCH (10:00)
[2021-10-13] MEDS: FLUVOXAMINE MALEATE PO SCH ×2 (10:00→20:24)
[2021-10-13] MEDS: TRICOR TAB 160 MG PO SCH (10:00)
[2021-10-13] MEDS: PEPCID TAB 40 MG PO SCH ×2 (10:00→20:23)
[2021-10-13] MEDS: ZINC SULFATE PO SCH ×2 (10:00→20:25)
[2021-10-13] MEDS: VITAMIN D3 125 mcg (5,000 UNITS) PO SCH (10:00)
[2021-10-13] MEDS: FOLIC ACID TAB 1 MG PO SCH (10:00)
[2021-10-13] MEDS: IMDUR PO SCH ×2 (10:00→20:24)
[2021-10-13] MEDS: HYDROCHLOROTHIAZIDE 25 MG TAB PO SCH (10:00)
[2021-10-13] MEDS: ASPIRIN PO SCH (10:02)
[2021-10-13] MEDS: ROBITUSSIN DM PO PRN ×2 (10:06→20:24)
[2021-10-13] MEDS ORDERED: NS 100 ML IV 100 ML ONE (10:23)
--- NOTE | 2021-10-13 11:49 | CT ---
HISTORYELEVATD DDIMER 2.16STUDYCTA [id number]/03/2022 CT chest. Chest radiograph from 10/13/2021.TECHNIQUECTA chest protocol with axial images from the thoracic inlet to upper abdomen with IV contrast. Sagittal and coronal reformats and MIP images were created. Automated exposure control was utilized.FINDINGSThe visualized thyroid gland appears benign. Non-atherosclerotic normal caliber thoracic aorta. Normal caliber and patent central pulmonary artery. There is a nonocclusive filling defect in the right lower lobe posterior segment image 84 series 4. Nearly occlusive filling defect in the superior segment right lower lobe image [address] evidence of right heart strain. The heart is mildly enlarged. No pericardial effusion. No pathologic adenopathy in the thorax. Right upper quadrant surgical clips are present. There is a small fluid collection in the gallbladder fossa. Subcentimeter nephrolithiasis bilaterally. No acute osseous abnormality.The trachea and mainstem bronchi appear patent. Near diffuse bilateral ground-glass opacities are present, worse than prior CT. Mild lingula bronchiectasis image 68 series 5. Trace bilateral pleural effusions. No pneumothorax.IMPRESSIONInterval worsening of bilateral COVID 19 pneumonia.Pulmonary emboli in the superior and posterior segments of the right lower lobe. No CT evidence of right heart strain.Trace pleural effusions.Electronically signed by: Nadir Ramirez (Oct 13, 2021 11:48:17)
[2021-10-13] MEDS: ACTEMRA 400 MG in NS 100 ML IV 80 ML IV SCH (12:41)
[2021-10-13] MEDS: NovoLIN R (or HumuLIN R) SUBCUT PRN ×2 (12:43→17:27)
[2021-10-13] MEDS ORDERED: XYLOCAINE 1 % (PLAIN) ONE (15:10)
[2021-10-13] MEDS: HEPARIN SODIUM IN D5W 25,000 UNITS/500 ML BAG IV PRN (16:30)
--- NOTE | 2021-10-13 18:57 | PCM.PROG ---
Progress Note Progress Note for Day of Date of Exam: 10/13/21 Subjective Subjective: PT IS A 56 YEAR OLD FEMALE ADMITTED FOR TREATMENT OF PNEUMONIA DUE TO COVID-19, HYPOXIA, RESPIRATORY DISTRESS, AND GENERALIZED WEAKNESS. THIS MORNING SHE IS RESTING IN BED, ALERT AND ORIENTED. SHE CONTINUES TO HAVE SHORTNESS OF BREATH, WEAKNESS, AND SORE THROAT. SHE IS CURRENTLY UTILIZING HE ATED HIGH FLOW WITH FIO2 AT 86%. LABS AND IMAGING WERE OBTAINED: WBC 18.8, HGB 11.1, PLT 201, NA 138, K 4.1, CREATININE 0.96, GLUCOSE 178, CRP 16.4, BNP 107, D-DIMER 2.16, A CHEST XRAY WAS OBTAINED AND REVEALED: No change diffuse bilateral ground-glass and alveolar infiltrates considering a difference in film technique. No change mild cardiomegaly without congestive heart failure. SHE IS CURRENTLY RECEIVING NORMAL SALINE AT KVO ML/HR, IV REMDESIVIR, SOLU-MEDROL 80MG IV Q8H, ZOSYN 3.375G IV TID, VIBRAMYCIN 100MG PO BID, ASCORBIC ACID, LOVENOX 30MG SC BID, PULMICORT NEBS, XOPENEX NEBS, PERIACTIN 8MG PO TID, VITAMIN D, PEPCID 40MG PO BID, TRICOR 160MG PO DAILY, FLUVOXAMINE 50MG PO BID, IVERMECTIN 21MG PO Q72H, ZINC SULFATE 220MG PO BID, AND THE POTASSIUM AND MAGNESIUM PROTOCOLS. SHE HAS RECEIVED ACTEMRA 400MG IV X 1 DOSE. WEAN/TITRATE SUPPLEMENTAL OXYGEN TOLERATED. DUE TO ELEVATED D-DIMER, WILL GET CTA OF CHEST TODAY. OTHERWISE, WILL CONTINUE TO CLOSELY MONITOR AND FOLLOW UP LABS/IMAGING. TIME SPENT ON CLINICAL ASSESSMENT, REVIEWING LABS AND IMAGING, DECISION MAKING, AND DOCUMENTATION GREATER THAN 45 MINUTES. Past Medical Family Social History Past Med/Fam/Surg Hx: No changes since H&P Allergies: Allergies flecainide Allergy (Verified 06/16/18 20:22) Review of Systems ROS: No change since H&P Vital Signs and I&O's Vital Signs: Temperature 98.8 F Pulse Rate [Left Radial] 73 Pulse Rate 59 Respiratory Rate 24 Blood Pressure [Right Arm] 162/89 Blood Pressure 103/63 O2 Sat by Pulse Oximetry 92 Intake and Output: Intake & Output 10/10/21 10/11/21 10/12/21 10/13/21 23:59 23:59 23:59 23:59 Intake Total 4010 / 4010 3530 / 3530 2840 / 2840 1468 / 1468 Output Total 0 / 0 Balance 4010 / 4010 3530 / 3530 2840 / 2840 1468 / 1468 Physical Exam Oriented: Normal Eyes: Normal Ear: Normal Nose: Normal Throat: Normal Respiratory: Diminished and Rhonchi Cardiovascular: Normal : Normal Auscultation: Bowel Sounds: Normal Tenderness: Normal Skin: Normal Musculoskeletal: Normal Psychiatric: Normal Mood Description: Calm Affect: Normal Speech Pattern: Clear and Appropriate Laboratory and Diagnostics Result Diagrams: 10/13/21 04:29 10/13/21 04:29 Labs: Laboratory WBC 18.8 X10^3/uL (3.6-10.0) H 10/13/21 04:29 RBC 3.62 X10^6/uL (3.5-5.4) 10/13/21 04:29 Hgb 11.1 g/dL (12.0-16.0) L 10/13/21 04:29 Hct 33.0 % (36.0-47.0) L 10/13/21 04:29 MCV 91.1 fL (80.0-100.0) 10/13/21 04:29 MCH 30.8 pg (27.0-34.0) 10/13/21 04:29 MCHC 33.8 g/dL (33.0-35.0) 10/13/21 04:29 RDW 13.8 % (11.6-16.5) 10/13/21 04:29 Plt Count 201 X10^3/uL (150.0-450.0) 10/13/21 04:29 MPV 9.0 fL (7.4-11.0) 10/13/21 04:29 Neut % (Auto) 89.9 % (42.0-75.0) H 10/13/21 04:29 Lymph % (Auto) 6.7 % (21.0-51.0) L 10/13/21 04:29 [place] % (Auto) 3.3 % (0.0-13.0) 10/13/21 04:29 Eos % (Auto) 0.0 % (0.9-2.9) L 10/13/21 04:29 Baso % (Auto) 0.1 % (0.2-1.0) L 10/13/21 04:29 Neut # (Auto) 16.9 x10^3/uL (2.2-4.8) H 10/13/21 04:29 Lymph # (Auto) 1.3 X10^3/uL (1.3-2.9) 10/13/21 04:29 [place] # (Auto) 0.6 x10^3/uL (0.3-0.8) 10/13/21 04:29 Eos # (Auto) 0.0 x10^3/uL (0.0-0.2) 10/13/21 04:29 Baso # (Auto) 0.0 X10^3/uL (0.0-0.1) 10/13/21 04:29 Absolute Nucleated RBC 0.1 /100WBC 10/13/21 04:29 PT 15.6 SECONDS (11.8-14.3) 10/13/21 13:07 INR Target Range - 10/13/21 13:07 INR 1.30 (0.8-1.3) 10/13/21 13:07 APTT 21.9 SECONDS (22.9-36.5) L 10/13/21 13:07 PTT Comment - 10/13/21 13:07 D-Dimer 2.16 ug/ml (0.0-0.57) H* 10/13/21 04:29 Sample Site Rrad 10/12/21 05:30 ABG pH 7.380 (7.35-7.45) 10/12/21 05:30 ABG pCO2 49.0 mmHg (35.0-45.0) H 10/12/21 05:30 ABG pO2 68.0 mmHg (80.0-100.0) L 10/12/21 05:30 ABG HCO3 29.0 mmol/L (22-26) H 10/12/21 05:30 ABG O2 Saturation 93.0 % (90-100) 10/12/21 05:30 ABG Base Excess 3.1 mmol/L (-2.0-2.0) H 10/12/21 05:30 Usama Test Pos 10/12/21 05:30 A-a Gradient 512.0 mmHg 10/12/21 05:30 FiO2 90.0 10/12/21 05:30 Blood Gas Comments Alecia well ms/mtf 10/12/21 05:30 Sodium 138 mmol/L (136-145) 10/13/21 04:29 Corrected Sodium 140 mmol/L (136-145) 10/13/21 04:29 Potassium 4.1 mmol/L (3.5-5.1) 10/13/21 04:29 Chloride 106 mmol/L (98-107) 10/13/21 04:29 Carbon Dioxide 28.5 mmol/L (21-32) 10/13/21 04:29 BUN 27 mg/dL (7-18) H 10/13/21 04:29 Creatinine 0.96 mg/dL (0.55-1.02) 10/13/21 04:29 Est GFR (MDRD) Af Amer > 60 (>60) 10/13/21 04:29 Est GFR (MDRD) Non-Af > 60 (>60) 10/13/21 04:29 Glucose 178 mg/dL (65-99) H 10/13/21 04:29 POC Glucose (mg/dL) 185 mg/dL (65-99) H 10/13/21 16:55 Calcium 7.8 mg/dL (8.5-10.1) L 10/13/21 04:29 Corrected Calcium 9.2 mg/dL (8.5-10.1) 10/13/21 04:29 Magnesium 2.5 mg/dL (1.7-2.9) 10/10/21 05:35 Ferritin 290 ng/mL (8-252) H 10/09/21 09:53 Total Bilirubin 0.60 mg/dL (0.2-1.0) 10/13/21 04:29 AST 59 Units/L (15-37) H 10/13/21 04:29 ALT 26 Units/L (12-78) 10/13/21 04:29 Alkaline Phosphatase 112 Units/L (46-116) 10/13/21 04:29 C-Reactive Protein 16.40 mg/L (0-3.0) H 10/13/21 04:29 B-Natriuretic Peptide 107 pg/mL (0-79) H 10/13/21 04:29 Total Protein 5.3 g/dL (6.4-8.2) L 10/13/21 04:29 Albumin 2.3 g/dL (3.4-5.0) L 10/13/21 04:29 Globulin 3.0 g/dL (2.5-4.5) 10/13/21 04:29 Albumin/Globulin Ratio 0.8 Ratio (1.1-2.1) L 10/13/21 04:29 Specimen Type Clean catch urine 10/09/21 11:29 Urine Color Yellow (YELLOW) 10/09/21 11:29 Urine Appearance Slightly hazy (CLEAR) 10/09/21 11:29 Urine pH 6.0 (5.0 - 8.0) 10/09/21 11:29 Ur Specific [place] 1.015 (1.000-1.030) 10/09/21 11:29 Urine Protein 2+ (NEGATIVE) 10/09/21 11:29 Urine Glucose (UA) Negative (NEGATIVE) 10/09/21 11:29 Urine Ketones Negative (NEGATIVE) 10/09/21 11:29 Urine Occult Blood 1+ (NEGATIVE) 10/09/21 11:29 Urine Nitrite Negative (NEGATIVE) 10/09/21 11:29 Urine Bilirubin Negative (NEGATIVE) 10/09/21 11:29 Urine Urobilinogen 1+ (NORMAL) 10/09/21 11:29 Ur Leukocyte Esterase 1+ (NEGATIVE) 10/09/21 11:29 Urine RBC 0-2 /HPF (0-3) 10/09/21 11:29 Urine WBC 0-2 /HPF (0-5) 10/09/21 11:29 Ur Squamous Epith Cells Many /HPF (NEGATIVE) 10/09/21 11:29 Urine Bacteria Trace /HPF (NEGATIVE) 10/09/21 11:29 Urine Yeast Few /HPF (NEGATIVE) 10/09/21 11:29 Ur Culture Indicated? No/not indicated 10/09/21 11:29 SARS-CoV-2 (PCR) Positive (NEGATIVE) A 10/09/21 13:32 Influenza Type A (PCR) Negative (NEGATIVE) 10/09/21 13:32 Influenza Type B (PCR) Negative (NEGATIVE) 10/09/21 13:32 RSV (PCR) Negative (NEGATIVE) 10/09/21 13:32 Plan (1) Pneumonia due to COVID-19 virus: Status: Acute Plan: SUPPLEMENTAL OXYGEN, IV ANTIBIOTICS, IV STEROIDS, NEBULIZER TREATMENTS, IMMUNE SUPPLEMENTS (2) Hypoxia: Status: Acute (3) Respiratory distress: Status: Acute (4) Generalized weakness: Status: Acute
[2021-10-13] MEDS: COLACE CAP 100 MG PO PRN (20:23)
[2021-10-14] MEDS: VITAMIN C PO SCH ×4 (05:04→21:32)
[2021-10-14] MEDS: SOLU-Medrol 40 MG VIAL IVP SCH ×3 (05:05→21:32)
[2021-10-14] MEDS: ROBITUSSIN DM PO PRN ×2 (05:05→15:54)
[2021-10-14] MEDS: PERIACTIN TAB 4 MG PO SCH ×3 (05:05→21:31)
[2021-10-14] MEDS: NS 1,000 ML IV 1,000 ML IV SCH ×3 (05:05→21:33)
[2021-10-14] MEDS: ZOSYN VIAL 3.375 GRAMS 3.375 G in NS 100 ML IV + SPIKE MINIBAG* 100 ML IV SCH ×3 (05:06→21:31)
[2021-10-14 05:28] LABS: BASOPHILS % (AUTO) 0.2 % (0.2-1.0); HEMATOCRIT 31.6 % (36.0-47.0); HEMOGLOBIN 10.8 g/dL (12.0-16.0); LYMPHOCYTES # (AUTO) 1.4 X10^3/uL (1.3-2.9); LYMPHOCYTES % (AUTO) 8.7 % (21.0-51.0); MEAN CORPUSCULAR HEMOGLOBIN 31.4 pg (27.0-34.0); MEAN CORPUSCULAR HGB CONC 34.3 g/dL (33.0-35.0); MEAN CORPUSCULAR VOLUME 91.5 fL (80.0-100.0); MEAN PLATELET VOLUME 8.9 fL (7.4-11.0); MONOCYTES # (AUTO) 0.5 x10^3/uL (0.3-0.8); MONOCYTES % (AUTO) 3.4 % (0.0-13.0); NEUTROPHILS % (AUTO) 87.7 % (42.0-75.0); PLATELET COUNT 188 X10^3/uL (150.0-450.0); RED BLOOD COUNT 3.45 X10^6/uL (3.5-5.4)
[2021-10-14 05:47] LABS: ALANINE AMINOTRANSFERASE 27 Units/L (12-78); ALBUMIN 2.2 g/dL (3.4-5.0); ALKALINE PHOSPHATASE 131 Units/L (46-116); ASPARTATE AMINO TRANSFERASE 58 Units/L (15-37); BLOOD UREA NITROGEN 29 mg/dL (7-18); CARBON DIOXIDE 27.7 mmol/L (21-32); CHLORIDE 104 mmol/L (98-107); COR CA(FOR HYPOALB) 9.4 mg/dL (8.5-10.1); COR NA(FOR HYPERGLY) 139 mmol/L (136-145); CREATININE 0.92 mg/dL (0.55-1.02); SODIUM 137 mmol/L (136-145); TOTAL PROTEIN 5.1 g/dL (6.4-8.2); eGFR NON BLACK RACES > 60 (>60)
[2021-10-14] MEDS: NovoLIN R (or HumuLIN R) SUBCUT PRN ×4 (05:56→21:33)
--- NOTE | 2021-10-14 06:27 | RAD ---
HISTORYSOB HX: HTN, SX: GB, HYSTERECTOMYSTUDYCHEST, 1 VIEWCOMPARISONOne 7 20/20 toFINDINGSThe trachea is midline. The cardiac silhouette is unremarkable. Patchy bibasilar consolidation unchanged. No pleural effusion or pneumothorax.. The bony thorax is unremarkable.IMPRESSIONStable portable chest.Electronically signed by: Cosmo Bermudez (Oct 14, 2021 06:25:58)
[2021-10-14] MEDS: XOPENEX 1.25 MG/3 ML NEBULE NEB SCH ×2 (08:55→20:58)
[2021-10-14] MEDS: PULMICORT NEB TX 0.5 MG NEB SCH ×2 (08:55→20:58)
[2021-10-14] MEDS: VITAMIN D3 125 mcg (5,000 UNITS) PO SCH (10:25)
[2021-10-14] MEDS: MOBIC TAB 15 MG PO SCH (10:26)
[2021-10-14] MEDS: TRICOR TAB 160 MG PO SCH (10:26)
[2021-10-14] MEDS: PEPCID TAB 40 MG PO SCH ×2 (10:26→21:31)
[2021-10-14] MEDS: FLUVOXAMINE MALEATE PO SCH ×2 (10:27→21:28)
[2021-10-14] MEDS: ZINC SULFATE PO SCH ×2 (10:27→21:31)
[2021-10-14] MEDS: HYDROCHLOROTHIAZIDE 25 MG TAB PO SCH (10:28)
[2021-10-14] MEDS: MILK OF MAGNESIA PO PRN ×2 (10:28→21:33)
[2021-10-14] MEDS: FOLIC ACID TAB 1 MG PO SCH (10:29)
[2021-10-14] MEDS: PROTONIX TAB 40 MG PO SCH (10:29)
[2021-10-14] MEDS: IMDUR PO SCH ×2 (10:29→21:30)
[2021-10-14] MEDS: CALAN SR 180 MG PO SCH (10:30)
[2021-10-14] MEDS: VIBRAMYCIN PO SCH ×2 (10:30→21:30)
[2021-10-14] MEDS: TUSSIONEX PENNKINETIC SUSP PO PRN (10:31)
--- NOTE | 2021-10-14 10:58 | PCM.PROG ---
Progress Note Progress Note for Day of Date of Exam: 10/14/21 Subjective Subjective: PT IS A 56 YEAR OLD FEMALE ADMITTED FOR TREATMENT OF PNEUMONIA DUE TO COVID-19, HYPOXIA, RESPIRATORY DISTRESS, AND GENERALIZED WEAKNESS. THIS MORNING SHE IS RESTING IN BED, ALERT AND ORIENTED. SHE REPORTS SOME IMPROVEMENT IN HER SYMPTOMS. SHE IS CURRENTLY UTILIZING HEATED HIGH FLOW WITH FIO2 AT 68%. LABS AND IMAGING WERE OBTAINED: WBC 16, HGB 10.8, PLT 188, NA 137, K 4.3, CREATININE 0.92, GLUCOSE 203, CRP 16.4>6.30. D-DIMER WAS ELEVATED AND A CTA CHEST WAS OBTAINED THAT REVEALED. Interval worsening of bilateral COVID 19 pneumonia. Pulmonary emboli in the superior and posterior segments of the right lower lobe. No CT evidence of right heart strain. Trace pleural effusions. SHE IS CURRENTLY RECEIVING NORMAL SALINE AT KVO ML/HR, IV REMDESIVIR, SOLU-MEDROL 80MG IV Q8H, ZOSYN 3.375G IV TID, VIBRAMYCIN 100MG PO BID, ASCORBIC ACID, PULMICORT NEBS, XOPENEX NEBS, PERIACTIN 8MG PO TID, VITAMIN D, PEPCID 40MG PO BID, TRICOR 160MG PO DAILY, FLUVOXAMINE 50MG PO BID, IVERMECTIN 21MG PO Q72H, ZINC SULFATE 220MG PO BID, AND THE POTASSIUM AND MAGNESIUM PROTOCOLS. SHE HAS RECEIVED ACTEMRA 400MG IV X 1 DOSE AND REGEN-COV. WEAN/TITRATE SUPPLEMENTAL OXYGEN TOLERATED. PT WAS STARTED ON HEPARIN GTT FOR PULMONARY EMBOLISM. HOLDING ELIQUIS 5MG BID THAT SHE TAKES FOR ATRIAL FIBRILLATION. OTHERWISE, WILL CONTINUE TO CLOSELY MONITOR AND FOLLOW UP LABS/IMAGING. TIME SPENT ON CLINICAL ASSESSMENT, REVIEWING LABS AND IMAGING, DECISION MAKING, AND DOCUMENTATION GREATER THAN 45 MINUTES. Past Medical Family Social History Past Med/Fam/Surg Hx: No changes since H&P Allergies: Allergies flecainide Allergy (Verified 06/16/18 20:22) Review of Systems ROS: No change since H&P Vital Signs and I&O's Vital Signs: Temperature 98.6 F Pulse Rate [Left Radial] 69 Pulse Rate 70 Respiratory Rate 17 Blood Pressure [Right Arm] 127/68 Blood Pressure 103/63 O2 Sat by Pulse Oximetry 94 Intake and Output: Intake & Output 10/11/21 10/12/21 10/13/21 10/14/21 23:59 23:59 23:59 23:59 Intake Total 3530 / 3530 2840 / 2840 2476 / 2476 897 / 897 Output Total 0 / 0 Balance 3530 / 3530 2840 / 2840 2476 / 2476 897 / 897 Physical Exam Oriented: Normal Eyes: Normal Ear: Normal Nose: Normal Throat: Normal Respiratory: Diminished and Rhonchi Cardiovascular: Normal : Normal Auscultation: Bowel Sounds: Normal Tenderness: Normal Skin: Normal Musculoskeletal: Normal Psychiatric: Normal Mood Description: Calm Affect: Normal Speech Pattern: Clear and Appropriate Laboratory and Diagnostics Result Diagrams: 10/14/21 04:47 10/14/21 04:47 Labs: Laboratory WBC 16.0 X10^3/uL (3.6-10.0) H 10/14/21 04:47 RBC 3.45 X10^6/uL (3.5-5.4) L 10/14/21 04:47 Hgb 10.8 g/dL (12.0-16.0) L 10/14/21 04:47 Hct 31.6 % (36.0-47.0) L 10/14/21 04:47 MCV 91.5 fL (80.0-100.0) 10/14/21 04:47 MCH 31.4 pg (27.0-34.0) 10/14/21 04:47 MCHC 34.3 g/dL (33.0-35.0) 10/14/21 04:47 RDW 14.0 % (11.6-16.5) 10/14/21 04:47 Plt Count 188 X10^3/uL (150.0-450.0) 10/14/21 04:47 MPV 8.9 fL (7.4-11.0) 10/14/21 04:47 Neut % (Auto) 87.7 % (42.0-75.0) H 10/14/21 04:47 Lymph % (Auto) 8.7 % (21.0-51.0) L 10/14/21 04:47 [place] % (Auto) 3.4 % (0.0-13.0) 10/14/21 04:47 Eos % (Auto) 0.0 % (0.9-2.9) L 10/14/21 04:47 Baso % (Auto) 0.2 % (0.2-1.0) 10/14/21 04:47 Neut # (Auto) 14.0 x10^3/uL (2.2-4.8) H 10/14/21 04:47 Lymph # (Auto) 1.4 X10^3/uL (1.3-2.9) 10/14/21 04:47 [place] # (Auto) 0.5 x10^3/uL (0.3-0.8) 10/14/21 04:47 Eos # (Auto) 0.0 x10^3/uL (0.0-0.2) 10/14/21 04:47 Baso # (Auto) 0.0 X10^3/uL (0.0-0.1) 10/14/21 04:47 Absolute Nucleated RBC 0.2 /100WBC 10/14/21 04:47 PT 15.6 SECONDS (11.8-14.3) 10/13/21 13:07 INR Target Range - 10/13/21 13:07 INR 1.30 (0.8-1.3) 10/13/21 13:07 APTT 160.3 SECONDS (22.9-36.5) H* 10/14/21 04:47 PTT Comment - 10/14/21 04:47 D-Dimer 2.16 ug/ml (0.0-0.57) H* 10/13/21 04:29 Sample Site Rrad 10/12/21 05:30 ABG pH 7.380 (7.35-7.45) 10/12/21 05:30 ABG pCO2 49.0 mmHg (35.0-45.0) H 10/12/21 05:30 ABG pO2 68.0 mmHg (80.0-100.0) L 10/12/21 05:30 ABG HCO3 29.0 mmol/L (22-26) H 10/12/21 05:30 ABG O2 Saturation 93.0 % (90-100) 10/12/21 05:30 ABG Base Excess 3.1 mmol/L (-2.0-2.0) H 10/12/21 05:30 Usama Test Pos 10/12/21 05:30 A-a Gradient 512.0 mmHg 10/12/21 05:30 FiO2 90.0 10/12/21 05:30 Blood Gas Comments Alecia well ms/mtf 10/12/21 05:30 Sodium 137 mmol/L (136-145) 10/14/21 04:47 Corrected Sodium 139 mmol/L (136-145) 10/14/21 04:47 Potassium 4.3 mmol/L (3.5-5.1) 10/14/21 04:47 Chloride 104 mmol/L (98-107) 10/14/21 04:47 Carbon Dioxide 27.7 mmol/L (21-32) 10/14/21 04:47 BUN 29 mg/dL (7-18) H 10/14/21 04:47 Creatinine 0.92 mg/dL (0.55-1.02) 10/14/21 04:47 Est GFR (MDRD) Af Amer > 60 (>60) 10/14/21 04:47 Est GFR (MDRD) Non-Af > 60 (>60) 10/14/21 04:47 Glucose 203 mg/dL (65-99) H 10/14/21 04:47 POC Glucose (mg/dL) 187 mg/dL (65-99) H 10/13/21 20:12 Calcium 8.0 mg/dL (8.5-10.1) L 10/14/21 04:47 Corrected Calcium 9.4 mg/dL (8.5-10.1) 10/14/21 04:47 Magnesium 2.5 mg/dL (1.7-2.9) 10/10/21 05:35 Ferritin 290 ng/mL (8-252) H 10/09/21 09:53 Total Bilirubin 0.70 mg/dL (0.2-1.0) 10/14/21 04:47 AST 58 Units/L (15-37) H 10/14/21 04:47 ALT 27 Units/L (12-78) 10/14/21 04:47 Alkaline Phosphatase 131 Units/L (46-116) H 10/14/21 04:47 C-Reactive Protein 6.30 mg/L (0-3.0) H 10/14/21 04:47 B-Natriuretic Peptide 73.7 pg/mL (0-79) 10/14/21 04:47 Total Protein 5.1 g/dL (6.4-8.2) L 10/14/21 04:47 Albumin 2.2 g/dL (3.4-5.0) L 10/14/21 04:47 Globulin 2.9 g/dL (2.5-4.5) 10/14/21 04:47 Albumin/Globulin Ratio 0.8 Ratio (1.1-2.1) L 10/14/21 04:47 Specimen Type Clean catch urine 10/09/21 11:29 Urine Color Yellow (YELLOW) 10/09/21 11:29 Urine Appearance Slightly hazy (CLEAR) 10/09/21 11:29 Urine pH 6.0 (5.0 - 8.0) 10/09/21 11:29 Ur Specific [place] 1.015 (1.000-1.030) 10/09/21 11:29 Urine Protein 2+ (NEGATIVE) 10/09/21 11:29 Urine Glucose (UA) Negative (NEGATIVE) 10/09/21 11:29 Urine Ketones Negative (NEGATIVE) 10/09/21 11:29 Urine Occult Blood 1+ (NEGATIVE) 10/09/21 11:29 Urine Nitrite Negative (NEGATIVE) 10/09/21 11:29 Urine Bilirubin Negative (NEGATIVE) 10/09/21 11:29 Urine Urobilinogen 1+ (NORMAL) 10/09/21 11:29 Ur Leukocyte Esterase 1+ (NEGATIVE) 10/09/21 11:29 Urine RBC 0-2 /HPF (0-3) 10/09/21 11:29 Urine WBC 0-2 /HPF (0-5) 10/09/21 11:29 Ur Squamous Epith Cells Many /HPF (NEGATIVE) 10/09/21 11:29 Urine Bacteria Trace /HPF (NEGATIVE) 10/09/21 11:29 Urine Yeast Few /HPF (NEGATIVE) 10/09/21 11:29 Ur Culture Indicated? No/not indicated 10/09/21 11:29 SARS-CoV-2 (PCR) Positive (NEGATIVE) A 10/09/21 13:32 Influenza Type A (PCR) Negative (NEGATIVE) 10/09/21 13:32 Influenza Type B (PCR) Negative (NEGATIVE) 10/09/21 13:32 RSV (PCR) Negative (NEGATIVE) 10/09/21 13:32 Plan (1) Pneumonia due to COVID-19 virus: Status: Acute Plan: SUPPLEMENTAL OXYGEN, IV ANTIBIOTICS, IV STEROIDS, NEBULIZER TREATMENTS, IMMUNE SUPPLEMENTS (2) Hypoxia: Status: Acute (3) Respiratory distress: Status: Acute (4) Generalized weakness: Status: Acute (5) Pulmonary embolism: Status: Acute Plan: HEPARIN GTT
[2021-10-14] MEDS: HEPARIN SODIUM IN D5W 25,000 UNITS/500 ML BAG IV PRN (12:00)
[2021-10-15] MEDS: NS 1,000 ML IV 1,000 ML IV SCH ×3 (03:29→21:17)
[2021-10-15] MEDS: VITAMIN C PO SCH ×4 (05:00→21:22)
[2021-10-15] MEDS: PERIACTIN TAB 4 MG PO SCH ×3 (06:38→21:22)
[2021-10-15] MEDS: ZOSYN VIAL 3.375 GRAMS 3.375 G in NS 100 ML IV + SPIKE MINIBAG* 100 ML IV SCH ×3 (06:39→21:23)
[2021-10-15] MEDS: NovoLIN R (or HumuLIN R) SUBCUT PRN ×4 (06:39→21:25)
[2021-10-15] MEDS: SOLU-Medrol 40 MG VIAL IVP SCH ×3 (06:39→21:22)
--- NOTE | 2021-10-15 06:50 | RAD ---
CHEST, 1 VIEWHISTORY: SOBStudy: Single view of the chest.Comparison:10/14/2021Findings:The cardiomediastinal silhouette is normal. Moderate worsening of bilateral insterstitial and airspace opacities. Osseous structures demonstrate no acute abnormality.IMPRESSION:1. Moderate worsening of bilateral interstitial and airspace opacities.Electronically signed by: FLORINDA WALKER (Oct 15, 2021 06:48:36)
[2021-10-15 07:13] LABS: BASOPHILS % (AUTO) 0.3 % (0.2-1.0); HEMOGLOBIN 9.7 g/dL (12.0-16.0); LYMPHOCYTES # (AUTO) 1.3 X10^3/uL (1.3-2.9); LYMPHOCYTES % (AUTO) 7.5 % (21.0-51.0); MEAN CORPUSCULAR HEMOGLOBIN 30.6 pg (27.0-34.0); MEAN CORPUSCULAR HGB CONC 33.5 g/dL (33.0-35.0); MEAN CORPUSCULAR VOLUME 91.2 fL (80.0-100.0); MONOCYTES # (AUTO) 0.7 x10^3/uL (0.3-0.8); MONOCYTES % (AUTO) 3.8 % (0.0-13.0); NEUTROPHILS # (AUTO) 15.4 x10^3/uL (2.2-4.8); NEUTROPHILS % (AUTO) 88.4 % (42.0-75.0); PLATELET COUNT 190 X10^3/uL (150.0-450.0); RED BLOOD COUNT 3.18 X10^6/uL (3.5-5.4); RED CELL DISTRIBUTION WIDTH 13.9 % (11.6-16.5); WHITE BLOOD COUNT 17.4 X10^3/uL (3.6-10.0)
[2021-10-15 07:29] LABS: ALANINE AMINOTRANSFERASE 29 Units/L (12-78); ALBUMIN 2.1 g/dL (3.4-5.0); ALKALINE PHOSPHATASE 123 Units/L (46-116); ASPARTATE AMINO TRANSFERASE 43 Units/L (15-37); BLOOD UREA NITROGEN 26 mg/dL (7-18); CALCIUM 7.8 mg/dL (8.5-10.1); CARBON DIOXIDE 29.5 mmol/L (21-32); CHLORIDE 102 mmol/L (98-107); COR CA(FOR HYPOALB) 9.3 mg/dL (8.5-10.1); COR NA(FOR HYPERGLY) 139 mmol/L (136-145); CREATININE 0.95 mg/dL (0.55-1.02); SODIUM 136 mmol/L (136-145); TOTAL PROTEIN 4.8 g/dL (6.4-8.2); eGFR NON BLACK RACES > 60 (>60)
[2021-10-15] MEDS: XOPENEX 1.25 MG/3 ML NEBULE NEB SCH ×2 (09:29→20:59)
[2021-10-15] MEDS: PULMICORT NEB TX 0.5 MG NEB SCH ×2 (09:29→20:59)
[2021-10-15] MEDS: FLUVOXAMINE MALEATE PO SCH ×2 (09:37→21:19)
[2021-10-15] MEDS: HYDROCHLOROTHIAZIDE 25 MG TAB PO SCH (09:37)
[2021-10-15] MEDS: ZINC SULFATE PO SCH ×2 (09:37→21:22)
[2021-10-15] MEDS: FOLIC ACID TAB 1 MG PO SCH (09:37)
[2021-10-15] MEDS: CALAN SR 180 MG PO SCH (09:37)
[2021-10-15] MEDS: VITAMIN D3 125 mcg (5,000 UNITS) PO SCH (09:38)
[2021-10-15] MEDS: PROTONIX TAB 40 MG PO SCH (09:38)
[2021-10-15] MEDS: TRICOR TAB 160 MG PO SCH (09:38)
[2021-10-15] MEDS: PEPCID TAB 40 MG PO SCH ×2 (09:38→21:19)
[2021-10-15] MEDS: VIBRAMYCIN PO SCH ×2 (09:38→21:21)
[2021-10-15] MEDS: IMDUR PO SCH ×2 (09:38→21:19)
[2021-10-15] MEDS: COLACE CAP 100 MG PO PRN ×2 (09:50→21:23)
[2021-10-15] MEDS: TUSSIONEX PENNKINETIC SUSP PO PRN (09:50)
--- NOTE | 2021-10-15 10:32 | PCM.PROG ---
Progress Note Progress Note for Day of Date of Exam: 10/15/21 Subjective Subjective: PT IS A 56 YEAR OLD FEMALE ADMITTED FOR TREATMENT OF PNEUMONIA DUE TO COVID-19, HYPOXIA, PULMONARY EMBOLISM, RESPIRATORY DISTRESS, AND GENERALIZED WEAKNESS. THIS MORNING SHE REPORTS SOME IMPROVEMENT IN HER BREATHING COMPARED TO YESTERDAY. SHE IS CURRENTLY UTILIZING HEATED HIGH FLOW WITH FIO2 AT 58%. LABS AND IMAGING WERE OBTAINED: WBC 17.4, HGB 9.7, PLT 190, NA 136, K 4.1, CREATININE 0.95, GLUCOSE 205, CRP 16.4>6.30. CHEST XR WAS OBTAINED THIS MORNING THAT REVEALED: Moderate worsening of bilateral interstitial and airspace opacities. SHE IS CURRENTLY RECEIVING NORMAL SALINE AT KVO ML/HR, IV REMDESIVIR, SOLU- MEDROL 80MG IV Q8H, ZOSYN 3.375G IV TID, VIBRAMYCIN 100MG PO BID, ASCORBIC ACID, PULMICORT NEBS, XOPENEX NEBS, PERIACTIN 8MG PO TID, VITAMIN D, PEPCID 40MG PO BID, TRICOR 160MG PO DAILY, FLUVOXAMINE 50MG PO BID, IVERMECTIN 21MG PO Q72H, ZINC SULFATE 220MG PO BID, AND THE POTASSIUM AND MAGNESIUM PROTOCOLS. SHE HAS RECEIVED ACTEMRA 400MG IV X 1 DOSE AND REGEN-COV. WEAN/TITRATE SUPPLEMENTAL OXYGEN TOLERATED. WILL DISCONTINUE HEPARIN GTT AND START ON ELIQUIS 5MG BID. PT DOES HAVE SOME GENERALIZED SWELLING, WILL GIVE ONE DOSE OF ACETAZOLAMIDE. OTHERWISE, WILL CONTINUE TO CLOSELY MONITOR AND FOLLOW UP LABS/IMAGING. TIME SPENT ON CLINICAL ASSESSMENT, REVIEWING LABS AND IMAGING, DECISION MAKING, AND DOCUMENTATION GREATER THAN 45 MINUTES. Past Medical Family Social History Past Med/Fam/Surg Hx: No changes since H&P Allergies: Allergies flecainide Allergy (Verified 06/16/18 20:22) Review of Systems ROS: No change since H&P Vital Signs and I&O's Vital Signs: Temperature 98.4 F Pulse Rate [Left Radial] 64 Pulse Rate 62 Respiratory Rate 20 Blood Pressure [Right Arm] 138/72 Blood Pressure 103/63 O2 Sat by Pulse Oximetry 95 Intake and Output: Intake & Output 10/12/21 10/13/21 10/14/21 10/15/21 23:59 23:59 23:59 23:59 Intake Total 2840 / 2840 2476 / 2476 2361 / 2361 297 / 297 Output Total 1600 / 1600 325 / 325 Balance 2840 / 2840 2476 / 2476 761 / 761 -28 / -28 Physical Exam Oriented: Normal Eyes: Normal Ear: Normal Nose: Normal Throat: Normal Respiratory: Diminished and Rhonchi Cardiovascular: Normal : Normal Auscultation: Bowel Sounds: Normal Tenderness: Normal Skin: Normal Musculoskeletal: Normal Psychiatric: Normal Mood Description: Calm Affect: Normal Speech Pattern: Clear and Appropriate Laboratory and Diagnostics Result Diagrams: 10/15/21 07:00 10/15/21 07:00 Labs: Laboratory WBC 17.4 X10^3/uL (3.6-10.0) H 10/15/21 07:00 RBC 3.18 X10^6/uL (3.5-5.4) L 10/15/21 07:00 Hgb 9.7 g/dL (12.0-16.0) L 10/15/21 07:00 Hct 29.0 % (36.0-47.0) L 10/15/21 07:00 MCV 91.2 fL (80.0-100.0) 10/15/21 07:00 MCH 30.6 pg (27.0-34.0) 10/15/21 07:00 MCHC 33.5 g/dL (33.0-35.0) 10/15/21 07:00 RDW 13.9 % (11.6-16.5) 10/15/21 07:00 Plt Count 190 X10^3/uL (150.0-450.0) 10/15/21 07:00 MPV 9.0 fL (7.4-11.0) 10/15/21 07:00 Neut % (Auto) 88.4 % (42.0-75.0) H 10/15/21 07:00 Lymph % (Auto) 7.5 % (21.0-51.0) L 10/15/21 07:00 [place] % (Auto) 3.8 % (0.0-13.0) 10/15/21 07:00 Eos % (Auto) 0.0 % (0.9-2.9) L 10/15/21 07:00 Baso % (Auto) 0.3 % (0.2-1.0) 10/15/21 07:00 Neut # (Auto) 15.4 x10^3/uL (2.2-4.8) H 10/15/21 07:00 Lymph # (Auto) 1.3 X10^3/uL (1.3-2.9) 10/15/21 07:00 [place] # (Auto) 0.7 x10^3/uL (0.3-0.8) 10/15/21 07:00 Eos # (Auto) 0.0 x10^3/uL (0.0-0.2) 10/15/21 07:00 Baso # (Auto) 0.0 X10^3/uL (0.0-0.1) 10/15/21 07:00 Absolute Nucleated RBC 0.2 /100WBC 10/15/21 07:00 PT 15.6 SECONDS (11.8-14.3) 10/13/21 13:07 INR Target Range - 10/13/21 13:07 INR 1.30 (0.8-1.3) 10/13/21 13:07 APTT 76.1 SECONDS (22.9-36.5) H 10/15/21 07:00 PTT Comment - 10/15/21 07:00 D-Dimer 2.16 ug/ml (0.0-0.57) H* 10/13/21 04:29 Sample Site Rrad 10/12/21 05:30 ABG pH 7.380 (7.35-7.45) 10/12/21 05:30 ABG pCO2 49.0 mmHg (35.0-45.0) H 10/12/21 05:30 ABG pO2 68.0 mmHg (80.0-100.0) L 10/12/21 05:30 ABG HCO3 29.0 mmol/L (22-26) H 10/12/21 05:30 ABG O2 Saturation 93.0 % (90-100) 10/12/21 05:30 ABG Base Excess 3.1 mmol/L (-2.0-2.0) H 10/12/21 05:30 Usama Test Pos 10/12/21 05:30 A-a Gradient 512.0 mmHg 10/12/21 05:30 FiO2 90.0 10/12/21 05:30 Blood Gas Comments Alecia well ms/mtf 10/12/21 05:30 Sodium 136 mmol/L (136-145) 10/15/21 07:00 Corrected Sodium 139 mmol/L (136-145) 10/15/21 07:00 Potassium 4.1 mmol/L (3.5-5.1) 10/15/21 07:00 Chloride 102 mmol/L (98-107) 10/15/21 07:00 Carbon Dioxide 29.5 mmol/L (21-32) 10/15/21 07:00 BUN 26 mg/dL (7-18) H 10/15/21 07:00 Creatinine 0.95 mg/dL (0.55-1.02) 10/15/21 07:00 Est GFR (MDRD) Af Amer > 60 (>60) 10/15/21 07:00 Est GFR (MDRD) Non-Af > 60 (>60) 10/15/21 07:00 Glucose 205 mg/dL (65-99) H 10/15/21 07:00 POC Glucose (mg/dL) 195 mg/dL (65-99) H 10/15/21 05:50 Calcium 7.8 mg/dL (8.5-10.1) L 10/15/21 07:00 Corrected Calcium 9.3 mg/dL (8.5-10.1) 10/15/21 07:00 Magnesium 2.5 mg/dL (1.7-2.9) 10/10/21 05:35 Ferritin 290 ng/mL (8-252) H 10/09/21 09:53 Total Bilirubin 0.50 mg/dL (0.2-1.0) 10/15/21 07:00 AST 43 Units/L (15-37) H 10/15/21 07:00 ALT 29 Units/L (12-78) 10/15/21 07:00 Alkaline Phosphatase 123 Units/L (46-116) H 10/15/21 07:00 C-Reactive Protein 6.30 mg/L (0-3.0) H 10/14/21 04:47 B-Natriuretic Peptide 73.7 pg/mL (0-79) 10/14/21 04:47 Total Protein 4.8 g/dL (6.4-8.2) L 10/15/21 07:00 Albumin 2.1 g/dL (3.4-5.0) L 10/15/21 07:00 Globulin 2.7 g/dL (2.5-4.5) 10/15/21 07:00 Albumin/Globulin Ratio 0.8 Ratio (1.1-2.1) L 10/15/21 07:00 Specimen Type Clean catch urine 10/09/21 11:29 Urine Color Yellow (YELLOW) 10/09/21 11:29 Urine Appearance Slightly hazy (CLEAR) 10/09/21 11:29 Urine pH 6.0 (5.0 - 8.0) 10/09/21 11:29 Ur Specific [place] 1.015 (1.000-1.030) 10/09/21 11:29 Urine Protein 2+ (NEGATIVE) 10/09/21 11:29 Urine Glucose (UA) Negative (NEGATIVE) 10/09/21 11:29 Urine Ketones Negative (NEGATIVE) 10/09/21 11:29 Urine Occult Blood 1+ (NEGATIVE) 10/09/21 11:29 Urine Nitrite Negative (NEGATIVE) 10/09/21 11:29 Urine Bilirubin Negative (NEGATIVE) 10/09/21 11:29 Urine Urobilinogen 1+ (NORMAL) 10/09/21 11:29 Ur Leukocyte Esterase 1+ (NEGATIVE) 10/09/21 11:29 Urine RBC 0-2 /HPF (0-3) 10/09/21 11:29 Urine WBC 0-2 /HPF (0-5) 10/09/21 11:29 Ur Squamous Epith Cells Many /HPF (NEGATIVE) 10/09/21 11:29 Urine Bacteria Trace /HPF (NEGATIVE) 10/09/21 11:29 Urine Yeast Few /HPF (NEGATIVE) 10/09/21 11:29 Ur Culture Indicated? No/not indicated 10/09/21 11:29 SARS-CoV-2 (PCR) Positive (NEGATIVE) A 10/09/21 13:32 Influenza Type A (PCR) Negative (NEGATIVE) 10/09/21 13:32 Influenza Type B (PCR) Negative (NEGATIVE) 10/09/21 13:32 RSV (PCR) Negative (NEGATIVE) 10/09/21 13:32 Plan (1) Pneumonia due to COVID-19 virus: Status: Acute Plan: SUPPLEMENTAL OXYGEN, IV ANTIBIOTICS, IV STEROIDS, NEBULIZER TREATMENTS, IMMUNE SUPPLEMENTS (2) Hypoxia: Status: Acute (3) Respiratory distress: Status: Acute (4) Generalized weakness: Status: Acute (5) Pulmonary embolism: Status: Acute Plan: HEPARIN GTT
[2021-10-15] MEDS ORDERED: DIAMOX PO ONE (10:40)
[2021-10-15] MEDS: ELIQUIS PO SCH ×2 (11:00→21:18)
[2021-10-15] MEDS: ROBITUSSIN DM PO PRN (17:21)
[2021-10-15] MEDS: MILK OF MAGNESIA PO PRN (21:23)
[2021-10-15] MEDS ORDERED: LOPRESSOR INJ 5 MG AMP IVP ONE ×2 (22:26→23:08)
[2021-10-15] MEDS ORDERED: LOPRESSOR INJ 5 MG AMP ONE ×2 (22:27→23:09)
[2021-10-16] MEDS ORDERED: NORMODYNE INJ 20 MG VIAL ONE (00:18)
[2021-10-16] MEDS ORDERED: NORMODYNE INJ 20 MG VIAL IVP ONE (00:30)
[2021-10-16] MEDS ORDERED: LOPRESSOR TAB 25 MG ONE (01:56)
[2021-10-16] MEDS ORDERED: LOPRESSOR TAB 25 MG PO SCH (02:00)
[2021-10-16] MEDS: NS 1,000 ML IV 1,000 ML IV SCH ×3 (03:09→21:47)
[2021-10-16 05:10] LABS: BASOPHILS % (AUTO) 0.1 % (0.2-1.0); HEMATOCRIT 26.8 % (36.0-47.0); HEMOGLOBIN 9.1 g/dL (12.0-16.0); LYMPHOCYTES # (AUTO) 1.1 X10^3/uL (1.3-2.9); LYMPHOCYTES % (AUTO) 5.8 % (21.0-51.0); MEAN CORPUSCULAR HEMOGLOBIN 31.2 pg (27.0-34.0); MEAN CORPUSCULAR VOLUME 91.9 fL (80.0-100.0); MONOCYTES # (AUTO) 0.6 x10^3/uL (0.3-0.8); MONOCYTES % (AUTO) 3.2 % (0.0-13.0); NEUTROPHILS # (AUTO) 16.6 x10^3/uL (2.2-4.8); NEUTROPHILS % (AUTO) 90.9 % (42.0-75.0); PLATELET COUNT 182 X10^3/uL (150.0-450.0); RED BLOOD COUNT 2.91 X10^6/uL (3.5-5.4); RED CELL DISTRIBUTION WIDTH 13.5 % (11.6-16.5); WHITE BLOOD COUNT 18.3 X10^3/uL (3.6-10.0)
[2021-10-16 05:27] LABS: ALANINE AMINOTRANSFERASE 37 Units/L (12-78); ALBUMIN 2.1 g/dL (3.4-5.0); ALKALINE PHOSPHATASE 106 Units/L (46-116); ASPARTATE AMINO TRANSFERASE 40 Units/L (15-37); BLOOD UREA NITROGEN 24 mg/dL (7-18); CALCIUM 7.8 mg/dL (8.5-10.1); CARBON DIOXIDE 30.4 mmol/L (21-32); CHLORIDE 106 mmol/L (98-107); COR CA(FOR HYPOALB) 9.3 mg/dL (8.5-10.1); COR NA(FOR HYPERGLY) 147 mmol/L (136-145); CREATININE 1.13 mg/dL (0.55-1.02); SODIUM 143 mmol/L (136-145); TOTAL PROTEIN 4.6 g/dL (6.4-8.2); eGFR NON BLACK RACES 53 (>60)
[2021-10-16 05:58] LABS: PLATELET MORPHOLOGY COMMENT NORMAL (NORMAL)
[2021-10-16] MEDS: VITAMIN C PO SCH ×4 (06:06→21:36)
[2021-10-16] MEDS: SOLU-Medrol 40 MG VIAL IVP SCH ×3 (06:07→21:31)
[2021-10-16] MEDS: PERIACTIN TAB 4 MG PO SCH ×3 (06:07→21:30)
[2021-10-16] MEDS: ZOSYN VIAL 3.375 GRAMS 3.375 G in NS 100 ML IV + SPIKE MINIBAG* 100 ML IV SCH ×3 (06:07→21:31)
[2021-10-16] MEDS: NovoLIN R (or HumuLIN R) SUBCUT PRN ×4 (06:08→21:59)
--- NOTE | 2021-10-16 07:11 | RAD ---
HISTORYCOVID+, SOBSTUDYCHEST, 1 [id number]/2022.TECHNIQUEAP view of the chestFINDINGSPatient is mildly rotated. Cardiac and mediastinal contours are within normal limits. Mild improvement in diffuse bilateral airspace and interstitial opacities. No definite pleural effusion or pneumothorax. Soft tissue attenuation limits evaluation.IMPRESSIONMild improvement in bilateral pneumonia.Electronically signed by: Nadir Ramirez (Oct 16, 2021 07:09:57)
[2021-10-16] MEDS: ELIQUIS PO SCH ×2 (08:20→21:30)
[2021-10-16] MEDS: HYDROCHLOROTHIAZIDE 25 MG TAB PO SCH (08:20)
[2021-10-16] MEDS: IMDUR PO SCH ×2 (08:20→21:36)
[2021-10-16] MEDS: FOLIC ACID TAB 1 MG PO SCH (08:20)
[2021-10-16] MEDS: FLUVOXAMINE MALEATE PO SCH ×2 (08:20→21:30)
[2021-10-16] MEDS: CALAN SR 180 MG PO SCH (08:20)
[2021-10-16] MEDS: VIBRAMYCIN PO SCH ×2 (08:21→21:29)
[2021-10-16] MEDS: PROTONIX TAB 40 MG PO SCH (08:21)
[2021-10-16] MEDS: PEPCID TAB 40 MG PO SCH ×2 (08:21→21:30)
[2021-10-16] MEDS: TRICOR TAB 160 MG PO SCH (08:21)
[2021-10-16] MEDS: TUSSIONEX PENNKINETIC SUSP PO PRN (08:22)
[2021-10-16] MEDS: ZINC SULFATE PO SCH ×2 (08:22→21:30)
[2021-10-16] MEDS: VITAMIN D3 125 mcg (5,000 UNITS) PO SCH (08:22)
[2021-10-16] MEDS: XOPENEX 1.25 MG/3 ML NEBULE NEB SCH ×2 (08:57→20:21)
[2021-10-16] MEDS: PULMICORT NEB TX 0.5 MG NEB SCH ×2 (08:57→20:21)
[2021-10-16] MEDS ORDERED: LANOXIN INJ IVP ONE (10:14)
[2021-10-16 14:43] VITALS: BMI 41.7
[2021-10-17] MEDS: NS 1,000 ML IV 1,000 ML IV SCH ×3 (03:19→20:00)
[2021-10-17] MEDS: VITAMIN C PO SCH ×4 (04:27→21:17)
[2021-10-17 04:47] LABS: BASOPHILS % (AUTO) 0.1 % (0.2-1.0); HEMATOCRIT 28.4 % (36.0-47.0); HEMOGLOBIN 9.5 g/dL (12.0-16.0); LYMPHOCYTES # (AUTO) 1.3 X10^3/uL (1.3-2.9); LYMPHOCYTES % (AUTO) 6.8 % (21.0-51.0); MEAN CORPUSCULAR HEMOGLOBIN 30.9 pg (27.0-34.0); MEAN CORPUSCULAR HGB CONC 33.4 g/dL (33.0-35.0); MEAN CORPUSCULAR VOLUME 92.6 fL (80.0-100.0); MEAN PLATELET VOLUME 8.8 fL (7.4-11.0); MONOCYTES # (AUTO) 0.8 x10^3/uL (0.3-0.8); NEUTROPHILS # (AUTO) 17.6 x10^3/uL (2.2-4.8); NEUTROPHILS % (AUTO) 89.1 % (42.0-75.0); PLATELET COUNT 178 X10^3/uL (150.0-450.0); RED BLOOD COUNT 3.07 X10^6/uL (3.5-5.4); RED CELL DISTRIBUTION WIDTH 13.8 % (11.6-16.5); WHITE BLOOD COUNT 19.8 X10^3/uL (3.6-10.0)
[2021-10-17 04:58] LABS: ALANINE AMINOTRANSFERASE 75 Units/L (12-78); ALBUMIN 2.2 g/dL (3.4-5.0); ALKALINE PHOSPHATASE 95 Units/L (46-116); ASPARTATE AMINO TRANSFERASE 76 Units/L (15-37); BLOOD UREA NITROGEN 25 mg/dL (7-18); CALCIUM 7.9 mg/dL (8.5-10.1); CARBON DIOXIDE 29.7 mmol/L (21-32); CHLORIDE 106 mmol/L (98-107); COR CA(FOR HYPOALB) 9.3 mg/dL (8.5-10.1); COR NA(FOR HYPERGLY) 145 mmol/L (136-145); CREATININE 1.08 mg/dL (0.55-1.02); SODIUM 143 mmol/L (136-145); TOTAL PROTEIN 4.7 g/dL (6.4-8.2); eGFR NON BLACK RACES 56 (>60)
[2021-10-17] MEDS: PERIACTIN TAB 4 MG PO SCH ×3 (06:05→21:17)
[2021-10-17] MEDS ORDERED: NS 100 ML IV + SPIKE MINIBAG* 100 ML IV ONE (06:07)
--- NOTE | 2021-10-17 06:15 | RAD ---
HISTORYCOVID+ Relevant Clinical InformationSTUDYCHEST, 1 [id number]/2022FINDINGSThe trachea is midline. The cardiac silhouette is unremarkable. Diffuse bilateral airspace and interstitial opacities unchanged. No pneumothorax.. The bony thorax is unremarkable.IMPRESSIONStable portable chest.Electronically signed by: Cosmo Bermudez (Oct 17, 2021 06:14:19)
[2021-10-17] MEDS: ZOSYN VIAL 3.375 GRAMS 3.375 G in NS 100 ML IV + SPIKE MINIBAG* 100 ML IV SCH ×3 (06:20→22:00)
[2021-10-17] MEDS: NovoLIN R (or HumuLIN R) SUBCUT PRN ×2 (06:28→21:35)
[2021-10-17] MEDS: PULMICORT NEB TX 0.5 MG NEB SCH ×2 (08:30→20:12)
[2021-10-17] MEDS: XOPENEX 1.25 MG/3 ML NEBULE NEB SCH ×2 (08:30→20:12)
[2021-10-17] MEDS: COLACE CAP 100 MG PO PRN (08:44)
[2021-10-17] MEDS: SOLU-Medrol 40 MG VIAL IVP SCH ×2 (08:45→21:17)
[2021-10-17] MEDS: MILK OF MAGNESIA PO PRN (08:45)
[2021-10-17] MEDS: PEPCID TAB 40 MG PO SCH ×2 (08:45→21:18)
[2021-10-17] MEDS: VITAMIN D3 125 mcg (5,000 UNITS) PO SCH (08:46)
[2021-10-17] MEDS: ZINC SULFATE PO SCH ×2 (08:46→21:17)
[2021-10-17] MEDS: VIBRAMYCIN PO SCH ×2 (08:47→21:18)
[2021-10-17] MEDS: PROTONIX TAB 40 MG PO SCH (08:47)
[2021-10-17] MEDS: ELIQUIS PO SCH ×2 (08:47→21:17)
[2021-10-17] MEDS: FLUVOXAMINE MALEATE PO SCH ×2 (08:47→21:17)
[2021-10-17] MEDS: HYDROCHLOROTHIAZIDE 25 MG TAB PO SCH (08:47)
[2021-10-17] MEDS: FOLIC ACID TAB 1 MG PO SCH (08:47)
[2021-10-17] MEDS: TUSSIONEX PENNKINETIC SUSP PO PRN (08:48)
[2021-10-17] MEDS: TRICOR TAB 160 MG PO SCH (08:49)
[2021-10-17] MEDS: IMDUR PO SCH ×2 (08:50→21:19)
[2021-10-17] MEDS: CALAN SR 240 MG PO SCH (09:10)
--- NOTE | 2021-10-17 11:50 | PCM.PROG ---
Progress Note Progress Note for Day of Date of Exam: 10/16/21 Subjective Subjective: PT IS A 56 YEAR OLD FEMALE ADMITTED FOR TREATMENT OF PNEUMONIA DUE TO COVID-19, HYPOXIA, PULMONARY EMBOLISM, RESPIRATORY DISTRESS, AND GENERALIZED WEAKNESS. PT REPORTS FEELING MORE TIRED THIS MORNING. SHE IS CURRENTLY UTILIZING HEATED HIGH FLOW WITH FIO2 AT 52%. LABS AND IMAGING WERE OBTAINED: WBC 18.3, HGB 9.1, PLT 182, NA 143, K 3.9, CREATININE 1.13, GLUCOSE 248, CHEST XR WAS OBTAINED THIS MORNING THAT REVEALED: Mild improvement in bilateral pneumonia. SHE IS CURRENTLY RECEIVING NORMAL SALINE AT KVO ML/HR, IV REMDESIVIR(COMPLETED), SOLU-MEDROL 80MG IV Q8H, ZOSYN 3.375G IV TID, VIBRAMYCIN 100MG PO BID, ASCORBIC ACID, PULMICORT NEBS, XOPENEX NEBS, PERIACTIN 8MG PO TID, VITAMIN D, PEPCID 40MG PO BID, TRICOR 160MG PO DAILY, FLUVOXAMINE 50MG PO BID, IVERMECTIN 21MG PO Q72H, ZINC SULFATE 220MG PO BID, ELIQUIS 5MG BID, AND THE POTASSIUM AND MAGNESIUM PROTOCOLS. SHE HAS RECEIVED ACTEMRA 400MG IV X 1 DOSE AND REGEN-COV. WEAN/TITRATE SUPPLEMENTAL OXYGEN TOLERATED. PT HAVING UNCONTR OLLED ATRIAL FIBRILLATION WITH RVR, WILL GIVE DIGOXIN X 1 DOSE. OTHERWISE, WILL CONTINUE TO CLOSELY MONITOR AND FOLLOW UP LABS/IMAGING. TIME SPENT ON CLINICAL ASSESSMENT, REVIEWING LABS AND IMAGING, DECISION MAKING, AND DOCUMENTATION GREATER THAN 45 MINUTES. Past Medical Family Social History Past Med/Fam/Surg Hx: No changes since H&P Allergies: Allergies flecainide Allergy (Verified 06/16/18 20:22) Review of Systems ROS: No change since H&P Vital Signs and I&O's Vital Signs: Temperature 97.8 F Pulse Rate [Left Radial] 102 Pulse Rate 72 Respiratory Rate 20 Blood Pressure [Right Arm] 102/62 Blood Pressure 115/66 O2 Sat by Pulse Oximetry 93 Intake and Output: Intake & Output 10/14/21 10/15/21 10/16/21 10/17/21 23:59 23:59 23:59 23:59 Intake Total 2361 / 2361 1337 / 1337 1375 / 1375 280 / 280 Output Total 1600 / 1600 1925 / 1925 2600 / 2600 450 / 450 Balance 761 / 761 -588 / -588 -1225 / -1225 -170 / -170 Physical Exam Oriented: Normal Eyes: Normal Ear: Normal Nose: Normal Throat: Normal Respiratory: Diminished and Rhonchi Cardiovascular: Normal : Normal Auscultation: Bowel Sounds: Normal Tenderness: Normal Skin: Normal Musculoskeletal: Normal Psychiatric: Normal Mood Description: Calm Affect: Normal Speech Pattern: Clear and Appropriate Laboratory and Diagnostics Result Diagrams: 10/17/21 04:15 10/17/21 04:15 Labs: Laboratory WBC 19.8 X10^3/uL (3.6-10.0) H 10/17/21 04:15 RBC 3.07 X10^6/uL (3.5-5.4) L 10/17/21 04:15 Hgb 9.5 g/dL (12.0-16.0) L 10/17/21 04:15 Hct 28.4 % (36.0-47.0) L 10/17/21 04:15 MCV 92.6 fL (80.0-100.0) 10/17/21 04:15 MCH 30.9 pg (27.0-34.0) 10/17/21 04:15 MCHC 33.4 g/dL (33.0-35.0) 10/17/21 04:15 RDW 13.8 % (11.6-16.5) 10/17/21 04:15 Plt Count 178 X10^3/uL (150.0-450.0) 10/17/21 04:15 Plt Count Comment Adequate (ADEQUATE) 10/16/21 04:27 MPV 8.8 fL (7.4-11.0) 10/17/21 04:15 Neut % (Auto) 89.1 % (42.0-75.0) H 10/17/21 04:15 Lymph % (Auto) 6.8 % (21.0-51.0) L 10/17/21 04:15 [place] % (Auto) 4.0 % (0.0-13.0) 10/17/21 04:15 Eos % (Auto) 0.0 % (0.9-2.9) L 10/17/21 04:15 Baso % (Auto) 0.1 % (0.2-1.0) L 10/17/21 04:15 Neut # (Auto) 17.6 x10^3/uL (2.2-4.8) H 10/17/21 04:15 Lymph # (Auto) 1.3 X10^3/uL (1.3-2.9) 10/17/21 04:15 [place] # (Auto) 0.8 x10^3/uL (0.3-0.8) 10/17/21 04:15 Eos # (Auto) 0.0 x10^3/uL (0.0-0.2) 10/17/21 04:15 Baso # (Auto) 0.0 X10^3/uL (0.0-0.1) 10/17/21 04:15 Absolute Nucleated RBC 0.4 /100WBC 10/17/21 04:15 Total Counted 100 10/16/21 04:27 Neutrophils % (Manual) 89 % (39-76) H 10/16/21 04:27 Lymphocytes % (Manual) 7 % (13-43) L 10/16/21 04:27 Monocytes % (Manual) 4 % (4-9) 10/16/21 04:27 Plt Morphology Comment Normal (NORMAL) 10/16/21 04:27 RBC Morphology Normal (NORMAL) 10/16/21 04:27 PT 15.6 SECONDS (11.8-14.3) 10/13/21 13:07 INR Target Range - 10/13/21 13:07 INR 1.30 (0.8-1.3) 10/13/21 13:07 APTT 76.1 SECONDS (22.9-36.5) H 10/15/21 07:00 PTT Comment - 10/15/21 07:00 D-Dimer 2.16 ug/ml (0.0-0.57) H* 10/13/21 04:29 Sample Site Rrad 10/12/21 05:30 ABG pH 7.380 (7.35-7.45) 10/12/21 05:30 ABG pCO2 49.0 mmHg (35.0-45.0) H 10/12/21 05:30 ABG pO2 68.0 mmHg (80.0-100.0) L 10/12/21 05:30 ABG HCO3 29.0 mmol/L (22-26) H 10/12/21 05:30 ABG O2 Saturation 93.0 % (90-100) 10/12/21 05:30 ABG Base Excess 3.1 mmol/L (-2.0-2.0) H 10/12/21 05:30 Usama Test Pos 10/12/21 05:30 A-a Gradient 512.0 mmHg 10/12/21 05:30 FiO2 90.0 10/12/21 05:30 Blood Gas Comments Alecia well ms/mtf 10/12/21 05:30 Sodium 143 mmol/L (136-145) 10/17/21 04:15 Corrected Sodium 145 mmol/L (136-145) 10/17/21 04:15 Potassium 4.2 mmol/L (3.5-5.1) 10/17/21 04:15 Chloride 106 mmol/L (98-107) 10/17/21 04:15 Carbon Dioxide 29.7 mmol/L (21-32) 10/17/21 04:15 BUN 25 mg/dL (7-18) H 10/17/21 04:15 Creatinine 1.08 mg/dL (0.55-1.02) H 10/17/21 04:15 Est GFR (MDRD) Af Amer > 60 (>60) 10/17/21 04:15 Est GFR (MDRD) Non-Af 56 (>60) L 10/17/21 04:15 Glucose 202 mg/dL (65-99) H 10/17/21 04:15 POC Glucose (mg/dL) 169 mg/dL (65-99) H 10/17/21 11:05 Calcium 7.9 mg/dL (8.5-10.1) L 10/17/21 04:15 Corrected Calcium 9.3 mg/dL (8.5-10.1) 10/17/21 04:15 Magnesium 2.5 mg/dL (1.7-2.9) 10/10/21 05:35 Ferritin 290 ng/mL (8-252) H 10/09/21 09:53 Total Bilirubin 0.50 mg/dL (0.2-1.0) 10/17/21 04:15 AST 76 Units/L (15-37) H 10/17/21 04:15 ALT 75 Units/L (12-78) 10/17/21 04:15 Alkaline Phosphatase 95 Units/L (46-116) 10/17/21 04:15 C-Reactive Protein 6.30 mg/L (0-3.0) H 10/14/21 04:47 B-Natriuretic Peptide 73.7 pg/mL (0-79) 10/14/21 04:47 Total Protein 4.7 g/dL (6.4-8.2) L 10/17/21 04:15 Albumin 2.2 g/dL (3.4-5.0) L 10/17/21 04:15 Globulin 2.5 g/dL (2.5-4.5) 10/17/21 04:15 Albumin/Globulin Ratio 0.9 Ratio (1.1-2.1) L 10/17/21 04:15 Specimen Type Clean catch urine 10/09/21 11:29 Urine Color Yellow (YELLOW) 10/09/21 11:29 Urine Appearance Slightly hazy (CLEAR) 10/09/21 11:29 Urine pH 6.0 (5.0 - 8.0) 10/09/21 11:29 Ur Specific [place] 1.015 (1.000-1.030) 10/09/21 11:29 Urine Protein 2+ (NEGATIVE) 10/09/21 11:29 Urine Glucose (UA) Negative (NEGATIVE) 10/09/21 11:29 Urine Ketones Negative (NEGATIVE) 10/09/21 11:29 Urine Occult Blood 1+ (NEGATIVE) 10/09/21 11:29 Urine Nitrite Negative (NEGATIVE) 10/09/21 11:29 Urine Bilirubin Negative (NEGATIVE) 10/09/21 11:29 Urine Urobilinogen 1+ (NORMAL) 10/09/21 11:29 Ur Leukocyte Esterase 1+ (NEGATIVE) 10/09/21 11:29 Urine RBC 0-2 /HPF (0-3) 10/09/21 11:29 Urine WBC 0-2 /HPF (0-5) 10/09/21 11:29 Ur Squamous Epith Cells Many /HPF (NEGATIVE) 10/09/21 11:29 Urine Bacteria Trace /HPF (NEGATIVE) 10/09/21 11:29 Urine Yeast Few /HPF (NEGATIVE) 10/09/21 11:29 Ur Culture Indicated? No/not indicated 10/09/21 11:29 SARS-CoV-2 (PCR) Positive (NEGATIVE) A 10/09/21 13:32 Influenza Type A (PCR) Negative (NEGATIVE) 10/09/21 13:32 Influenza Type B (PCR) Negative (NEGATIVE) 10/09/21 13:32 RSV (PCR) Negative (NEGATIVE) 10/09/21 13:32 Plan (1) Pneumonia due to COVID-19 virus: Status: Acute Plan: SUPPLEMENTAL OXYGEN, IV ANTIBIOTICS, IV STEROIDS, NEBULIZER TREATMENTS, IMMUNE SUPPLEMENTS (2) Hypoxia: Status: Acute (3) Respiratory distress: Status: Acute (4) Generalized weakness: Status: Acute (5) Pulmonary embolism: Status: Acute Plan: HEPARIN GTT
--- NOTE | 2021-10-17 14:40 | PCM.PROG ---
Progress Note Progress Note for Day of Date of Exam: 10/17/21 Subjective Subjective: PT IS A 56 YEAR OLD FEMALE ADMITTED FOR TREATMENT OF PNEUMONIA DUE TO COVID-19, HYPOXIA, PULMONARY EMBOLISM, RESPIRATORY DISTRESS, AND GENERALIZED WEAKNESS. PT BREATHING STATUS CONTINUES TO GRADUAL IMPROVE. SHE IS CURRENTLY UTILIZING HEATED HIGH FLOW WITH FIO2 AT 44%. STARTED TAPERING SOLUMEDROL YESTERDAY. LABS AND IMAGING WERE OBTAINED: WBC 19.8, HGB 9.5, PLT 178, NA 143, K 4.2, CREATININE 1.08, GLUCOSE 202, CHEST XR WAS OBTAINED THIS MORNING THAT REVEALED: Diffuse bilateral airspace and interstitial opacities unchanged. SHE IS CURRENTLY RECEIVING NORMAL SALINE AT KVO ML/HR, IV REMDESIVIR (COMPLETED), SOLU-MEDROL 40MG IV Q12H, ZOSYN 3.375G IV TID, VIBRAMYCIN 100MG PO BID, ASCORBIC ACID, PULMICORT NEBS, XOPENEX NEBS, PERIACTIN 8MG PO TID, VITAMIN D, PEPCID 40MG PO BID, TRICOR 160MG PO DAILY, FLUVOXAMINE 50MG PO BID, IVERMECTIN 21MG PO Q72H, ZINC SULFATE 220MG PO BID, ELIQUIS 5MG BID, AND THE POTASSIUM AND MAGNESIUM PROTOCOLS. SHE HAS RECEIVED ACTEMRA 400MG IV X 1 DOSE AND REGEN-COV. WEAN/TITRATE SUPPLEMENTAL OXYGEN TOLERATED. PT STILL HAVING UNCONTROLLED RATE ATRIAL FIBRILLATION WITH RVR, INCREASE VERAPAMIL DOSE. ATTEMPT TO CONVERT PATIENT FROM HEATED HIGH FLOW TO NASAL CANNULA TODAY. OTHERWISE, WILL CONTINUE TO CLOSELY MONITOR AND FOLLOW UP LABS/IMAGING. TIME SPENT ON CLINICAL ASSESSMENT, REVIEWING LABS AND IMAGING, DECISION MAKING, AND DOCUMENTATION GREATER THAN 45 MINUTES. Past Medical Family Social History Past Med/Fam/Surg Hx: No changes since H&P Allergies: Allergies flecainide Allergy (Verified 06/16/18 20:22) Review of Systems ROS: No change since H&P Vital Signs and I&O's Vital Signs: Temperature 97.9 F Pulse Rate [Left Radial] 102 Pulse Rate 70 Respiratory Rate 13 Blood Pressure [Right Arm] 102/62 Blood Pressure 119/78 O2 Sat by Pulse Oximetry 91 Intake and Output: Intake & Output 10/14/21 10/15/21 10/16/21 10/17/21 23:59 23:59 23:59 23:59 Intake Total 2361 / 2361 1337 / 1337 1375 / 1375 280 / 280 Output Total 1600 / 1600 1925 / 1925 2600 / 2600 450 / 450 Balance 761 / 761 -588 / -588 -1225 / -1225 -170 / -170 Physical Exam Oriented: Normal Eyes: Normal Ear: Normal Nose: Normal Throat: Normal Respiratory: Diminished and Rhonchi Cardiovascular: Normal : Normal Auscultation: Bowel Sounds: Normal Tenderness: Normal Skin: Normal Musculoskeletal: Normal Psychiatric: Normal Mood Description: Calm Affect: Normal Speech Pattern: Clear and Appropriate Laboratory and Diagnostics Result Diagrams: 10/17/21 04:15 10/17/21 04:15 Labs: Laboratory WBC 19.8 X10^3/uL (3.6-10.0) H 10/17/21 04:15 RBC 3.07 X10^6/uL (3.5-5.4) L 10/17/21 04:15 Hgb 9.5 g/dL (12.0-16.0) L 10/17/21 04:15 Hct 28.4 % (36.0-47.0) L 10/17/21 04:15 MCV 92.6 fL (80.0-100.0) 10/17/21 04:15 MCH 30.9 pg (27.0-34.0) 10/17/21 04:15 MCHC 33.4 g/dL (33.0-35.0) 10/17/21 04:15 RDW 13.8 % (11.6-16.5) 10/17/21 04:15 Plt Count 178 X10^3/uL (150.0-450.0) 10/17/21 04:15 Plt Count Comment Adequate (ADEQUATE) 10/16/21 04:27 MPV 8.8 fL (7.4-11.0) 10/17/21 04:15 Neut % (Auto) 89.1 % (42.0-75.0) H 10/17/21 04:15 Lymph % (Auto) 6.8 % (21.0-51.0) L 10/17/21 04:15 [place] % (Auto) 4.0 % (0.0-13.0) 10/17/21 04:15 Eos % (Auto) 0.0 % (0.9-2.9) L 10/17/21 04:15 Baso % (Auto) 0.1 % (0.2-1.0) L 10/17/21 04:15 Neut # (Auto) 17.6 x10^3/uL (2.2-4.8) H 10/17/21 04:15 Lymph # (Auto) 1.3 X10^3/uL (1.3-2.9) 10/17/21 04:15 [place] # (Auto) 0.8 x10^3/uL (0.3-0.8) 10/17/21 04:15 Eos # (Auto) 0.0 x10^3/uL (0.0-0.2) 10/17/21 04:15 Baso # (Auto) 0.0 X10^3/uL (0.0-0.1) 10/17/21 04:15 Absolute Nucleated RBC 0.4 /100WBC 10/17/21 04:15 Total Counted 100 10/16/21 04:27 Neutrophils % (Manual) 89 % (39-76) H 10/16/21 04:27 Lymphocytes % (Manual) 7 % (13-43) L 10/16/21 04:27 Monocytes % (Manual) 4 % (4-9) 10/16/21 04:27 Plt Morphology Comment Normal (NORMAL) 10/16/21 04:27 RBC Morphology Normal (NORMAL) 10/16/21 04:27 PT 15.6 SECONDS (11.8-14.3) 10/13/21 13:07 INR Target Range - 10/13/21 13:07 INR 1.30 (0.8-1.3) 10/13/21 13:07 APTT 76.1 SECONDS (22.9-36.5) H 10/15/21 07:00 PTT Comment - 10/15/21 07:00 D-Dimer 2.16 ug/ml (0.0-0.57) H* 10/13/21 04:29 Sample Site Rrad 10/12/21 05:30 ABG pH 7.380 (7.35-7.45) 10/12/21 05:30 ABG pCO2 49.0 mmHg (35.0-45.0) H 10/12/21 05:30 ABG pO2 68.0 mmHg (80.0-100.0) L 10/12/21 05:30 ABG HCO3 29.0 mmol/L (22-26) H 10/12/21 05:30 ABG O2 Saturation 93.0 % (90-100) 10/12/21 05:30 ABG Base Excess 3.1 mmol/L (-2.0-2.0) H 10/12/21 05:30 Usama Test Pos 10/12/21 05:30 A-a Gradient 512.0 mmHg 10/12/21 05:30 FiO2 90.0 10/12/21 05:30 Blood Gas Comments Alecia well ms/mtf 10/12/21 05:30 Sodium 143 mmol/L (136-145) 10/17/21 04:15 Corrected Sodium 145 mmol/L (136-145) 10/17/21 04:15 Potassium 4.2 mmol/L (3.5-5.1) 10/17/21 04:15 Chloride 106 mmol/L (98-107) 10/17/21 04:15 Carbon Dioxide 29.7 mmol/L (21-32) 10/17/21 04:15 BUN 25 mg/dL (7-18) H 10/17/21 04:15 Creatinine 1.08 mg/dL (0.55-1.02) H 10/17/21 04:15 Est GFR (MDRD) Af Amer > 60 (>60) 10/17/21 04:15 Est GFR (MDRD) Non-Af 56 (>60) L 10/17/21 04:15 Glucose 202 mg/dL (65-99) H 10/17/21 04:15 POC Glucose (mg/dL) 169 mg/dL (65-99) H 10/17/21 11:05 Calcium 7.9 mg/dL (8.5-10.1) L 10/17/21 04:15 Corrected Calcium 9.3 mg/dL (8.5-10.1) 10/17/21 04:15 Magnesium 2.5 mg/dL (1.7-2.9) 10/10/21 05:35 Ferritin 290 ng/mL (8-252) H 10/09/21 09:53 Total Bilirubin 0.50 mg/dL (0.2-1.0) 10/17/21 04:15 AST 76 Units/L (15-37) H 10/17/21 04:15 ALT 75 Units/L (12-78) 10/17/21 04:15 Alkaline Phosphatase 95 Units/L (46-116) 10/17/21 04:15 C-Reactive Protein 6.30 mg/L (0-3.0) H 10/14/21 04:47 B-Natriuretic Peptide 73.7 pg/mL (0-79) 10/14/21 04:47 Total Protein 4.7 g/dL (6.4-8.2) L 10/17/21 04:15 Albumin 2.2 g/dL (3.4-5.0) L 10/17/21 04:15 Globulin 2.5 g/dL (2.5-4.5) 10/17/21 04:15 Albumin/Globulin Ratio 0.9 Ratio (1.1-2.1) L 10/17/21 04:15 Specimen Type Clean catch urine 10/09/21 11:29 Urine Color Yellow (YELLOW) 10/09/21 11:29 Urine Appearance Slightly hazy (CLEAR) 10/09/21 11:29 Urine pH 6.0 (5.0 - 8.0) 10/09/21 11:29 Ur Specific [place] 1.015 (1.000-1.030) 10/09/21 11:29 Urine Protein 2+ (NEGATIVE) 10/09/21 11:29 Urine Glucose (UA) Negative (NEGATIVE) 10/09/21 11:29 Urine Ketones Negative (NEGATIVE) 10/09/21 11:29 Urine Occult Blood 1+ (NEGATIVE) 10/09/21 11:29 Urine Nitrite Negative (NEGATIVE) 10/09/21 11:29 Urine Bilirubin Negative (NEGATIVE) 10/09/21 11:29 Urine Urobilinogen 1+ (NORMAL) 10/09/21 11:29 Ur Leukocyte Esterase 1+ (NEGATIVE) 10/09/21 11:29 Urine RBC 0-2 /HPF (0-3) 10/09/21 11:29 Urine WBC 0-2 /HPF (0-5) 10/09/21 11:29 Ur Squamous Epith Cells Many /HPF (NEGATIVE) 10/09/21 11:29 Urine Bacteria Trace /HPF (NEGATIVE) 10/09/21 11:29 Urine Yeast Few /HPF (NEGATIVE) 10/09/21 11:29 Ur Culture Indicated? No/not indicated 10/09/21 11:29 SARS-CoV-2 (PCR) Positive (NEGATIVE) A 10/09/21 13:32 Influenza Type A (PCR) Negative (NEGATIVE) 10/09/21 13:32 Influenza Type B (PCR) Negative (NEGATIVE) 10/09/21 13:32 RSV (PCR) Negative (NEGATIVE) 10/09/21 13:32 Plan (1) Pneumonia due to COVID-19 virus: Status: Acute Plan: SUPPLEMENTAL OXYGEN, IV ANTIBIOTICS, IV STEROIDS, NEBULIZER TREATMENTS, IMMUNE SUPPLEMENTS (2) Hypoxia: Status: Acute (3) Respiratory distress: Status: Acute (4) Generalized weakness: Status: Acute (5) Pulmonary embolism: Status: Acute Plan: HEPARIN GTT
[2021-10-18] MEDS: NS 1,000 ML IV 1,000 ML IV SCH ×3 (03:57→21:08)
[2021-10-18 04:20] LABS: ABG BASE EXCESS 11.1 mmol/L (-2.0-2.0)
[2021-10-18 04:21] LABS: ABG ALLEN TEST POS; ABG HCO3 36.4 mmol/L (22-26)
[2021-10-18] MEDS: ZOSYN VIAL 3.375 GRAMS 3.375 G in NS 100 ML IV + SPIKE MINIBAG* 100 ML IV SCH ×3 (05:10→21:07)
[2021-10-18] MEDS: VITAMIN C PO SCH ×4 (05:10→21:06)
[2021-10-18] MEDS: PERIACTIN TAB 4 MG PO SCH ×3 (05:10→21:07)
[2021-10-18 06:36] LABS: BASOPHILS % (AUTO) 0.1 % (0.2-1.0); EOSINOPHILS # (AUTO) 0.1 x10^3/uL (0.0-0.2); EOSINOPHILS % (AUTO) 0.6 % (0.9-2.9); HEMATOCRIT 29.1 % (36.0-47.0); HEMOGLOBIN 9.7 g/dL (12.0-16.0); LYMPHOCYTES # (AUTO) 2.2 X10^3/uL (1.3-2.9); LYMPHOCYTES % (AUTO) 14.2 % (21.0-51.0); MEAN CORPUSCULAR HEMOGLOBIN 31.1 pg (27.0-34.0); MEAN CORPUSCULAR HGB CONC 33.4 g/dL (33.0-35.0); MEAN CORPUSCULAR VOLUME 93.1 fL (80.0-100.0); MONOCYTES # (AUTO) 0.8 x10^3/uL (0.3-0.8); MONOCYTES % (AUTO) 5.3 % (0.0-13.0); NEUTROPHILS # (AUTO) 12.2 x10^3/uL (2.2-4.8); NEUTROPHILS % (AUTO) 79.8 % (42.0-75.0); PLATELET COUNT 160 X10^3/uL (150.0-450.0); RED BLOOD COUNT 3.13 X10^6/uL (3.5-5.4); RED CELL DISTRIBUTION WIDTH 13.8 % (11.6-16.5); WHITE BLOOD COUNT 15.3 X10^3/uL (3.6-10.0)
[2021-10-18 06:45] LABS: ALANINE AMINOTRANSFERASE 95 Units/L (12-78); ALBUMIN 2.3 g/dL (3.4-5.0); ALKALINE PHOSPHATASE 86 Units/L (46-116); ASPARTATE AMINO TRANSFERASE 67 Units/L (15-37); BLOOD UREA NITROGEN 23 mg/dL (7-18); CALCIUM 7.9 mg/dL (8.5-10.1); CARBON DIOXIDE 34.4 mmol/L (21-32); CHLORIDE 105 mmol/L (98-107); COR CA(FOR HYPOALB) 9.3 mg/dL (8.5-10.1); COR NA(FOR HYPERGLY) 143 mmol/L (136-145); CREATININE 1.07 mg/dL (0.55-1.02); SODIUM 142 mmol/L (136-145); TOTAL PROTEIN 4.7 g/dL (6.4-8.2); eGFR NON BLACK RACES 57 (>60)
--- NOTE | 2021-10-18 07:10 | RAD ---
HISTORYFollow-up COVID-19STUDYChest AP [id number] t is enlarged. No congestive heart failure is noted. Diffuse bilateral ground-glass infiltrates are again identified slightly more prominent on the right than the left. No pleural effusions or pneumothoraces are identified. Bony thorax is unremarkable.IMPRESSIONMild cardiomegaly without congestive heart failureNo change diffuse bilateral ground-glass infiltratesElectronically signed by: JASON SHOOK (Oct 18, 2021 07:09:02)
[2021-10-18 08:09] LABS: BAND NEUTROPHILS % 1 % (0-10); PLATELET MORPHOLOGY COMMENT NORMAL (NORMAL)
[2021-10-18] MEDS: ELIQUIS PO SCH ×2 (08:15→21:07)
[2021-10-18] MEDS: CALAN SR 240 MG PO SCH (08:15)
[2021-10-18] MEDS: FLUVOXAMINE MALEATE PO SCH ×2 (08:16→21:06)
[2021-10-18] MEDS: IMDUR PO SCH ×2 (08:16→21:07)
[2021-10-18] MEDS: HYDROCHLOROTHIAZIDE 25 MG TAB PO SCH (08:16)
[2021-10-18] MEDS: FOLIC ACID TAB 1 MG PO SCH (08:16)
[2021-10-18] MEDS: PROTONIX TAB 40 MG PO SCH (08:17)
[2021-10-18] MEDS: SOLU-Medrol 40 MG VIAL IVP SCH ×2 (08:17→21:06)
[2021-10-18] MEDS: TRICOR TAB 160 MG PO SCH (08:17)
[2021-10-18] MEDS: PEPCID TAB 40 MG PO SCH ×2 (08:17→21:05)
[2021-10-18] MEDS: ZINC SULFATE PO SCH ×2 (08:18→21:06)
[2021-10-18] MEDS: VITAMIN D3 125 mcg (5,000 UNITS) PO SCH (08:18)
[2021-10-18] MEDS: VIBRAMYCIN PO SCH ×2 (08:18→21:06)
[2021-10-18] MEDS: PULMICORT NEB TX 0.5 MG NEB SCH ×2 (08:50→20:49)
[2021-10-18] MEDS: XOPENEX 1.25 MG/3 ML NEBULE NEB SCH ×2 (08:50→20:49)
[2021-10-18] MEDS: TUSSIONEX PENNKINETIC SUSP PO PRN (09:00)
[2021-10-18] MEDS: NovoLIN R (or HumuLIN R) SUBCUT PRN ×2 (12:36→21:11)
--- NOTE | 2021-10-18 12:37 | PCM.PROG ---
Progress Note - Progress Note for Day of Date of Exam: 10/18/21 - Subjective Subjective: IS BEING TREATED FOR PNEUMONIA DUE TO COVID-19, HYPOXIA, PULMONARY EMBOLISM, A-FIB, RESPIRATORY DISTRESS, AND GENERALIZED WEAKNESS. PT BREATHING STATUS CONTINUES TO GRADUAL IMPROVE. SHE IS CURRENTLY UTILIZING OXYGEN VIA NASAL CANNULA AT 3 LITERS/MINUTE. SATURATIONS HAVE BEEN 90-97% THIS MORNING AND THROGUHOUT THE NIGHT. ONE EXAMINATION, HEART IS REGULAR IN RATE AND RHYTHM. BILATERAL LUNGS NOTED WITH RHONCHI THROUGHOUT. ABDOMEN IS ROUND, SOFT, AND NON- TENDER WITH NORMAL BOWEL SOUNDS NOTED IN ALL QUADRANTS. HER VITALS THIS MORNING ARE: 98.0-80-19-90%-159/91. LABS AND IMAGING WERE OBTAINED: WBC 15.3, HGB 9.7, HCT 29.1, BUN 23, CREATININE 1.07, GLUCOSE 124, AST 67, ALT 95, BNP 94.8, TOTAL PROTEIN 4.7, ALBUMIN 2.3. CHEST XR WAS OBTAINED THIS MORNING THAT REVEALED: Mild cardiomegaly without congestive heart failure. No change diffuse bilateral ground-glass infiltrates. SHE IS CURRENTLY RECEIVING NORMAL SALINE AT KVO ML/HR, SOLU-MEDROL 40MG IV Q12H, VERAPAMIL 240MG PO DAILY, ZOSYN 3.375G IV TID, VIBRAMYCIN 100MG PO BID, ASCORBIC ACID, PULMICORT NEBS, XOPENEX NEBS, PERIACTIN 8MG PO TID, VITAMIN D, PEPCID 40MG PO BID, TRICOR 160MG PO DAILY, FLUVOXAMINE 50MG PO BID, ZINC SULFATE 220MG PO BID, ELIQUIS 5MG BID, MILK OF MAGNESIA 30ML PO BID PRN, AND THE POTASSIUM AND MAGNESIUM PROTOCOLS. SHE HAS RECEIVED ACTEMRA 400MG IV X 1 DOSE AND REGEN-COV. WEAN/TITRATE SUPPLEMENTAL OXYGEN TOLERATED. OTHERWISE, WILL CONTINUE TO CLOSELY MONITOR AND FOLLOW UP LABS/IMAGING. TIME SPE NT ON CLINICAL ASSESSMENT, REVIEWING LABS AND IMAGING, DECISION MAKING, AND DOCUMENTATION GREATER THAN 45 MINUTES. - Past Medical Family Social History Past Med/Fam/Surg Hx: No changes since H&P Allergies: Allergies flecainide Allergy (Verified 06/16/18 20:22) - Review of Systems ROS: No change since H&P - Vital Signs and I&O's Vital Signs: Temperature 98.0 F Pulse Rate [Left Radial] 102 Pulse Rate 73 Respiratory Rate 15 Blood Pressure [Right Arm] 102/62 Blood Pressure 159/91 O2 Sat by Pulse Oximetry 87 Intake and Output: Intake & Output 10/16/21 10/17/21 10/18/21 10/19/21 11:59 11:59 11:59 11:59 Intake Total 1360 / 1360 1335 / 1335 1832 / 1832 Output Total 2500 / 2500 2150 / 2150 2400 / 2400 Balance -1140 / -1140 -815 / -815 -568 / -568 - Physical Exam Oriented: Normal Eyes: Normal Ear: Normal Nose: Normal Throat: Normal Respiratory: Diminished, Rhonchi Cardiovascular: Normal : Normal Auscultation: Bowel Sounds: Normal Tenderness: Normal Skin: Normal Musculoskeletal: Normal Psychiatric: Normal Mood Description: Calm Affect: Normal Speech Pattern: Clear, Appropriate - Laboratory and Diagnostics Result Diagrams: 10/18/21 05:56 10/18/21 05:56 Labs: Laboratory WBC 15.3 X10^3/uL (3.6-10.0) H 10/18/21 05:56 RBC 3.13 X10^6/uL (3.5-5.4) L 10/18/21 05:56 Hgb 9.7 g/dL (12.0-16.0) L 10/18/21 05:56 Hct 29.1 % (36.0-47.0) L 10/18/21 05:56 MCV 93.1 fL (80.0-100.0) 10/18/21 05:56 MCH 31.1 pg (27.0-34.0) 10/18/21 05:56 MCHC 33.4 g/dL (33.0-35.0) 10/18/21 05:56 RDW 13.8 % (11.6-16.5) 10/18/21 05:56 Plt Count 160 X10^3/uL (150.0-450.0) 10/18/21 05:56 Plt Count Comment Adequate (ADEQUATE) 10/18/21 05:56 MPV 9.0 fL (7.4-11.0) 10/18/21 05:56 Neut % (Auto) 79.8 % (42.0-75.0) H 10/18/21 05:56 Lymph % (Auto) 14.2 % (21.0-51.0) L 10/18/21 05:56 [place] % (Auto) 5.3 % (0.0-13.0) 10/18/21 05:56 Eos % (Auto) 0.6 % (0.9-2.9) L 10/18/21 05:56 Baso % (Auto) 0.1 % (0.2-1.0) L 10/18/21 05:56 Neut # (Auto) 12.2 x10^3/uL (2.2-4.8) H 10/18/21 05:56 Lymph # (Auto) 2.2 X10^3/uL (1.3-2.9) 10/18/21 05:56 [place] # (Auto) 0.8 x10^3/uL (0.3-0.8) 10/18/21 05:56 Eos # (Auto) 0.1 x10^3/uL (0.0-0.2) 10/18/21 05:56 Baso # (Auto) 0.0 X10^3/uL (0.0-0.1) 10/18/21 05:56 Absolute Nucleated RBC 0.7 /100WBC 10/18/21 05:56 Total Counted 100 10/18/21 05:56 Neutrophils % (Manual) 75 % (39-76) 10/18/21 05:56 Band Neutrophils % 1 % (0-10) 10/18/21 05:56 Lymphocytes % (Manual) 24 % (13-43) 10/18/21 05:56 Monocytes % (Manual) 4 % (4-9) 10/16/21 04:27 Plt Morphology Comment Normal (NORMAL) 10/18/21 05:56 RBC Morphology Normal (NORMAL) 10/18/21 05:56 PT 15.6 SECONDS (11.8-14.3) 10/13/21 13:07 INR Target Range - 10/13/21 13:07 INR 1.30 (0.8-1.3) 10/13/21 13:07 APTT 76.1 SECONDS (22.9-36.5) H 10/15/21 07:00 PTT Comment - 10/15/21 07:00 D-Dimer 2.16 ug/ml (0.0-0.57) H* 10/13/21 04:29 Sample Site Rr 10/18/21 04:15 ABG pH 7.470 (7.35-7.45) H 10/18/21 04:15 ABG pCO2 50.0 mmHg (35.0-45.0) H 10/18/21 04:15 ABG pO2 59.0 mmHg (80.0-100.0) L 10/18/21 04:15 ABG HCO3 36.4 mmol/L (22-26) H* 10/18/21 04:15 ABG O2 Saturation 92.0 % (90-100) 10/18/21 04:15 ABG Base Excess 11.1 mmol/L (-2.0-2.0) H 10/18/21 04:15 Usama Test Pos 10/18/21 04:15 A-a Gradient 107.0 mmHg 10/18/21 04:15 FiO2 32.0 10/18/21 04:15 Blood Gas Comments Alecia well ae 10/18/21 04:15 Sodium 142 mmol/L (136-145) 10/18/21 05:56 Corrected Sodium 143 mmol/L (136-145) 10/18/21 05:56 Potassium 3.8 mmol/L (3.5-5.1) 10/18/21 05:56 Chloride 105 mmol/L (98-107) 10/18/21 05:56 Carbon Dioxide 34.4 mmol/L (21-32) H 10/18/21 05:56 BUN 23 mg/dL (7-18) H 10/18/21 05:56 Creatinine 1.07 mg/dL (0.55-1.02) H 10/18/21 05:56 Est GFR (MDRD) Af Amer > 60 (>60) 10/18/21 05:56 Est GFR (MDRD) Non-Af 57 (>60) L 10/18/21 05:56 Glucose 124 mg/dL (65-99) H 10/18/21 05:56 POC Glucose (mg/dL) 185 mg/dL (65-99) H 10/18/21 11:39 Calcium 7.9 mg/dL (8.5-10.1) L 10/18/21 05:56 Corrected Calcium 9.3 mg/dL (8.5-10.1) 10/18/21 05:56 Magnesium 2.5 mg/dL (1.7-2.9) 10/10/21 05:35 Ferritin 290 ng/mL (8-252) H 10/09/21 09:53 Total Bilirubin 0.50 mg/dL (0.2-1.0) 10/18/21 05:56 AST 67 Units/L (15-37) H 10/18/21 05:56 ALT 95 Units/L (12-78) H 10/18/21 05:56 Alkaline Phosphatase 86 Units/L (46-116) 10/18/21 05:56 C-Reactive Protein < 0.50 mg/L (0-3.0) 10/18/21 05:56 B-Natriuretic Peptide 94.8 pg/mL (0-79) H 10/18/21 05:56 Total Protein 4.7 g/dL (6.4-8.2) L 10/18/21 05:56 Albumin 2.3 g/dL (3.4-5.0) L 10/18/21 05:56 Globulin 2.4 g/dL (2.5-4.5) L 10/18/21 05:56 Albumin/Globulin Ratio 1.0 Ratio (1.1-2.1) L 10/18/21 05:56 Specimen Type Clean catch urine 10/09/21 11:29 Urine Color Yellow (YELLOW) 10/09/21 11:29 Urine Appearance Slightly hazy (CLEAR) 10/09/21 11:29 Urine pH 6.0 (5.0 - 8.0) 10/09/21 11:29 Ur Specific [place] 1.015 (1.000-1.030) 10/09/21 11:29 Urine Protein 2+ (NEGATIVE) 10/09/21 11:29 Urine Glucose (UA) Negative (NEGATIVE) 10/09/21 11:29 Urine Ketones Negative (NEGATIVE) 10/09/21 11:29 Urine Occult Blood 1+ (NEGATIVE) 10/09/21 11:29 Urine Nitrite Negative (NEGATIVE) 10/09/21 11:29 Urine Bilirubin Negative (NEGATIVE) 10/09/21 11:29 Urine Urobilinogen 1+ (NORMAL) 10/09/21 11:29 Ur Leukocyte Esterase 1+ (NEGATIVE) 10/09/21 11:29 Urine RBC 0-2 /HPF (0-3) 10/09/21 11:29 Urine WBC 0-2 /HPF (0-5) 10/09/21 11:29 Ur Squamous Epith Cells Many /HPF (NEGATIVE) 10/09/21 11:29 Urine Bacteria Trace /HPF (NEGATIVE) 10/09/21 11:29 Urine Yeast Few /HPF (NEGATIVE) 10/09/21 11:29 Ur Culture Indicated? No/not indicated 10/09/21 11:29 SARS-CoV-2 (PCR) Positive (NEGATIVE) A 10/09/21 13:32 Influenza Type A (PCR) Negative (NEGATIVE) 10/09/21 13:32 Influenza Type B (PCR) Negative (NEGATIVE) 10/09/21 13:32 RSV (PCR) Negative (NEGATIVE) 10/09/21 13:32 - Plan (1) Pneumonia due to COVID-19 virus Status: Acute Plan: SUPPLEMENTAL OXYGEN, IV ANTIBIOTICS, IV STEROIDS, NEBULIZER TREATMENTS, IMMUNE SUPPLEMENTS (2) Hypoxia Status: Acute (3) Pulmonary embolism Status: Acute Qualifiers: Pulmonary embolism type: unspecified Chronicity: acute Acute cor pulmonale presence: unspecified Qualified Code(s): I26.99 - Other pulmonary e mbolism without acute cor pulmonale Plan: HEPARIN GTT (4) A-fib Status: Acute Qualifiers: Atrial fibrillation type: unspecified Qualified Code(s): I48.91 - Unspecified atrial fibrillation (5) Respiratory distress Status: Acute (6) Generalized weakness Status: Acute
[2021-10-19] MEDS: NS 1,000 ML IV 1,000 ML IV SCH ×3 (03:07→21:10)
[2021-10-19] MEDS: ZOSYN VIAL 3.375 GRAMS 3.375 G in NS 100 ML IV + SPIKE MINIBAG* 100 ML IV SCH ×2 (05:00→13:19)
[2021-10-19] MEDS: VITAMIN C PO SCH ×4 (05:00→21:10)
[2021-10-19] MEDS: PERIACTIN TAB 4 MG PO SCH ×3 (05:00→21:00)
[2021-10-19 05:10] LABS: RED BLOOD COUNT 3.09 X10^6/uL (3.5-5.4); RED CELL DISTRIBUTION WIDTH 14.1 % (11.6-16.5)
[2021-10-19 05:18] LABS: ALANINE AMINOTRANSFERASE 97 Units/L (12-78); ALBUMIN 2.4 g/dL (3.4-5.0); ALKALINE PHOSPHATASE 81 Units/L (46-116); ASPARTATE AMINO TRANSFERASE 44 Units/L (15-37); BASOPHILS % (AUTO) 0.2 % (0.2-1.0); BLOOD UREA NITROGEN 21 mg/dL (7-18); CARBON DIOXIDE 31.6 mmol/L (21-32); CHLORIDE 104 mmol/L (98-107); COR CA(FOR HYPOALB) 9.3 mg/dL (8.5-10.1); COR NA(FOR HYPERGLY) 142 mmol/L (136-145); CREATININE 1.04 mg/dL (0.55-1.02); EOSINOPHILS % (AUTO) 0.1 % (0.9-2.9); HEMATOCRIT 28.8 % (36.0-47.0); HEMOGLOBIN 9.6 g/dL (12.0-16.0); LYMPHOCYTES # (AUTO) 1.1 X10^3/uL (1.3-2.9); LYMPHOCYTES % (AUTO) 8.6 % (21.0-51.0); MEAN CORPUSCULAR HEMOGLOBIN 31.1 pg (27.0-34.0); MEAN CORPUSCULAR HGB CONC 33.4 g/dL (33.0-35.0); MEAN CORPUSCULAR VOLUME 93.1 fL (80.0-100.0); MEAN PLATELET VOLUME 9.4 fL (7.4-11.0); MONOCYTES # (AUTO) 0.6 x10^3/uL (0.3-0.8); MONOCYTES % (AUTO) 4.5 % (0.0-13.0); NEUTROPHILS # (AUTO) 11.3 x10^3/uL (2.2-4.8); NEUTROPHILS % (AUTO) 86.6 % (42.0-75.0); PLATELET COUNT 165 X10^3/uL (150.0-450.0); SODIUM 140 mmol/L (136-145); TOTAL PROTEIN 4.9 g/dL (6.4-8.2); WHITE BLOOD COUNT 13.1 X10^3/uL (3.6-10.0); eGFR NON BLACK RACES 58 (>60)
[2021-10-19 05:32] LABS: PLATELET MORPHOLOGY COMMENT NORMAL (NORMAL)
[2021-10-19 05:35] LABS: ABG ALLEN TEST POS; ABG BASE EXCESS 9.1 mmol/L (-2.0-2.0); ABG HCO3 33.5 mmol/L (22-26)
--- NOTE | 2021-10-19 06:40 | RAD ---
HISTORYFollow-up COVID-19STUDYChest AP [id number] t is mildly enlarged. No congestive heart failure is noted. Diffuse ground-glass infiltrates are present throughout the right lung unchanged when compared to the prior examination. Improving less prominent ground-glass infiltrates are present on the left. No pleural effusion or pneumothorax is identified. Bony thorax is unremarkable.IMPRESSIONNo change diffuse right lung ground-glass infiltratesImproving left lung ground-glass infiltratesNo change mild cardiomegaly without congestive heart failureElectronically signed by: JASON SHOOK (Oct 19, 2021 06:39:28)
[2021-10-19] MEDS: CALAN SR 240 MG PO SCH (08:53)
[2021-10-19] MEDS: HYDROCHLOROTHIAZIDE 25 MG TAB PO SCH (08:54)
[2021-10-19] MEDS: IMDUR PO SCH ×2 (08:54→21:30)
[2021-10-19] MEDS: FLUVOXAMINE MALEATE PO SCH ×2 (08:54→21:30)
[2021-10-19] MEDS: ELIQUIS PO SCH ×2 (08:54→21:30)
[2021-10-19] MEDS: FOLIC ACID TAB 1 MG PO SCH (08:54)
[2021-10-19] MEDS: PEPCID TAB 40 MG PO SCH ×2 (08:54→21:30)
[2021-10-19] MEDS: VITAMIN D3 125 mcg (5,000 UNITS) PO SCH (08:55)
[2021-10-19] MEDS: PROTONIX TAB 40 MG PO SCH (08:55)
[2021-10-19] MEDS: SOLU-Medrol 40 MG VIAL IVP SCH ×2 (08:55→21:30)
[2021-10-19] MEDS: ZINC SULFATE PO SCH ×2 (08:55→21:30)
[2021-10-19] MEDS: TRICOR TAB 160 MG PO SCH (08:55)
[2021-10-19] MEDS: VIBRAMYCIN PO SCH ×2 (08:55→21:30)
[2021-10-19] MEDS: XOPENEX 1.25 MG/3 ML NEBULE NEB SCH ×2 (09:18→20:14)
[2021-10-19] MEDS: PULMICORT NEB TX 0.5 MG NEB SCH ×2 (09:18→20:14)
[2021-10-19] MEDS ORDERED: LANOXIN INJ IVP ONE ×3 (11:04→12:27)
[2021-10-19] MEDS ORDERED: [UNRECOGNIZED DRUG - OTHER] IVP ONE (11:07)
[2021-10-19] MEDS: TUSSIONEX PENNKINETIC SUSP PO PRN (12:45)
[2021-10-19] MEDS ORDERED: LANOXIN INJ IVP SCH (13:00)
[2021-10-19] MEDS ORDERED: LOPRESSOR INJ 5 MG AMP IVP ONE (13:22)
[2021-10-19] MEDS: NovoLIN R (or HumuLIN R) SUBCUT PRN (16:07)
[2021-10-20] MEDS: NS 1,000 ML IV 1,000 ML IV SCH ×2 (03:10→11:22)
[2021-10-20] MEDS: PERIACTIN TAB 4 MG PO SCH (05:05)
[2021-10-20] MEDS: VITAMIN C PO SCH ×2 (05:05→10:18)
[2021-10-20 05:14] LABS: BASOPHILS % (AUTO) 0.3 % (0.2-1.0); HEMATOCRIT 31.4 % (36.0-47.0); HEMOGLOBIN 10.5 g/dL (12.0-16.0); LYMPHOCYTES # (AUTO) 1.2 X10^3/uL (1.3-2.9); LYMPHOCYTES % (AUTO) 6.9 % (21.0-51.0); MEAN CORPUSCULAR HEMOGLOBIN 31.7 pg (27.0-34.0); MEAN CORPUSCULAR HGB CONC 33.5 g/dL (33.0-35.0); MEAN CORPUSCULAR VOLUME 94.6 fL (80.0-100.0); MEAN PLATELET VOLUME 9.4 fL (7.4-11.0); MONOCYTES # (AUTO) 0.7 x10^3/uL (0.3-0.8); MONOCYTES % (AUTO) 4.4 % (0.0-13.0); NEUTROPHILS # (AUTO) 14.7 x10^3/uL (2.2-4.8); NEUTROPHILS % (AUTO) 88.4 % (42.0-75.0); PLATELET COUNT 170 X10^3/uL (150.0-450.0); RED BLOOD COUNT 3.32 X10^6/uL (3.5-5.4); RED CELL DISTRIBUTION WIDTH 14.5 % (11.6-16.5); WHITE BLOOD COUNT 16.6 X10^3/uL (3.6-10.0)
[2021-10-20 05:20] LABS: ALANINE AMINOTRANSFERASE 77 Units/L (12-78); ALBUMIN 2.5 g/dL (3.4-5.0); ALKALINE PHOSPHATASE 81 Units/L (46-116); ASPARTATE AMINO TRANSFERASE 29 Units/L (15-37); BLOOD UREA NITROGEN 22 mg/dL (7-18); CALCIUM 8.2 mg/dL (8.5-10.1); CARBON DIOXIDE 31.1 mmol/L (21-32); CHLORIDE 103 mmol/L (98-107); COR CA(FOR HYPOALB) 9.4 mg/dL (8.5-10.1); COR NA(FOR HYPERGLY) 143 mmol/L (136-145); CREATININE 1.07 mg/dL (0.55-1.02); SODIUM 139 mmol/L (136-145); TOTAL PROTEIN 5.2 g/dL (6.4-8.2); eGFR NON BLACK RACES 57 (>60)
[2021-10-20 05:57] LABS: ABG BASE EXCESS 7.5 mmol/L (-2.0-2.0)
[2021-10-20 05:59] LABS: ABG ALLEN TEST POS
[2021-10-20 06:58] LABS: ABG HCO3 31.1 mmol/L (22-26)
--- NOTE | 2021-10-20 07:29 | RAD ---
HISTORYCOVID+STUDYCHEST, 1 VIEWCOMPARISONOne day prior.TECHNIQUEAP view of the chestFINDINGSCardiac and mediastinal contours are within normal limits. No significant change in bilateral interstitial opacities. No definite pleural effusion or pneumothorax. Soft tissue attenuation limits evaluation.IMPRESSIONNo significant change.Electronically signed by: Nadir Ramirez (Oct 20, 2021 07:27:46)
[2021-10-20] MEDS ORDERED: LANOXIN or DIGITEK PO SCH (09:00)
[2021-10-20] MEDS: PULMICORT NEB TX 0.5 MG NEB SCH (09:37)
[2021-10-20] MEDS: XOPENEX 1.25 MG/3 ML NEBULE NEB SCH (09:38)
[2021-10-20 09:44] VITALS: BP 157/99
[2021-10-20] MEDS: ELIQUIS PO SCH (10:14)
[2021-10-20] MEDS: CALAN SR 240 MG PO SCH (10:14)
[2021-10-20] MEDS: FOLIC ACID TAB 1 MG PO SCH (10:16)
[2021-10-20] MEDS: IMDUR PO SCH (10:16)
[2021-10-20] MEDS: FLUVOXAMINE MALEATE PO SCH (10:16)
[2021-10-20] MEDS: HYDROCHLOROTHIAZIDE 25 MG TAB PO SCH (10:16)
[2021-10-20] MEDS: VIBRAMYCIN PO SCH (10:17)
[2021-10-20] MEDS: PROTONIX TAB 40 MG PO SCH (10:17)
[2021-10-20] MEDS: TRICOR TAB 160 MG PO SCH (10:17)
[2021-10-20] MEDS: SOLU-Medrol 40 MG VIAL IVP SCH (10:17)
[2021-10-20] MEDS: PEPCID TAB 40 MG PO SCH (10:17)
[2021-10-20] MEDS: VITAMIN D3 125 mcg (5,000 UNITS) PO SCH (10:18)
[2021-10-20] MEDS: ZINC SULFATE PO SCH (10:18)
== END 2021-10-20 11:26 | disposition home or self-care (01) | DRG 177 ==
LOC: ER 09:32 → ICU 09:32 → OBSVTOIN 14:42 → ICU 15:23
PROVIDERS: ADMIT Internal Medicine; ATTEND Internal Medicine
DX: R73.09 Other abnormal glucose; R09.02 Hypoxemia; H92.01 Otalgia, right ear; R94.31 Abnormal electrocardiogram [ECG] [EKG]; U07.1 COVID-19; R53.1 Weakness; R79.89 Other specified abnormal findings of blood chemistry; R06.03 Acute respiratory distress; J12.82 Pneumonia due to coronavirus disease 2019; I26.99 Other pulmonary embolism without acute cor pulmonale; R79.82 Elevated C-reactive protein (CRP); R06.02 Shortness of breath; I48.91 Unspecified atrial fibrillation